=== PATIENT | male | born 1970 | race African-American/Black ===

== ENCOUNTER 2022-12-23 12:30 | Observation (INO) | payer OTHER, SELFPAY ==
--- NOTE | ~2022-12-23 | CT_ITS ---
EXAMINATION: CT ABDOMEN AND PELVIS WITHOUT CONTRAST CLINICAL INFORMATION: Urinary retention COMPARISON: None available. TECHNIQUE: Multidetector volumetric imaging was performed from the superior aspect of the liver through the pubic symphysis. Sagittal and coronal reformatted images were obtained on the technologist's workstation. This CT examination was performed using dose optimization techniques as appropriate, variously including the following: *Automated exposure control *Adjustment of mA and/or kV according to patient size (this includes techniques or standardized protocols for targeted exams where dose is matched to indication/reason for exam; i.e. extremities or head) *Use of iterative reconstruction technique DLP: 456 mGy-cm FINDINGS: LUNG BASES: Unremarkable. ABDOMINAL AND PELVIC WALL: Unremarkable. LIVER AND BILIARY TREE: Unremarkable. GALLBLADDER: Unremarkable. PANCREAS: Unremarkable. SPLEEN: Unremarkable. ADRENAL GLANDS: Unremarkable. KIDNEYS AND URETERS: No hydronephrosis or nephrolithiasis. GASTROINTESTINAL TRACT: Small hiatal hernia. Colonic diverticulosis without evidence of diverticulitis. Normal appendix. VASCULAR: Unremarkable. LYMPH NODES/PERITONEUM: No lymphadenopathy. FREE FLUID: None. BLADDER: Guzman catheter decompresses the urinary bladder. PELVIC VISCERA: Prostate is mildly enlarged measuring 5.2 cm in transverse diameter. OSSEOUS STRUCTURES: Unremarkable. CT/CT abdomen pelvis wo IV con IMPRESSION: 1. Guzman catheter decompresses the urinary bladder, limiting evaluation. No hydronephrosis or nephrolithiasis. 2. Prostate is mildly enlarged.
[2022-12-23 13:38] VITALS: BP 205/131; PULSE 75; RESP 16; TEMP 36.6; O2SAT 98; BMI 28.5
--- NOTE | 2022-12-23 14:15 | ED_ITS ---
HPI - Male Genitourinary General Chief complaint: Urogenital-Male Stated complaint: Abd pain/Urinary retention Time Seen by Provider: 12/23/22 14:02 Source: patient Mode of arrival: ambulatory Limitations: no limitations History of Present Illness HPI Narrative: 52-year-old male with no medical history presents to the ER for evaluation difficulty urinating and urinary retention that started 2 days ago. Patient states that since night he has had difficulty emptying his bladder. He states he has a sensation to urinate but is only urinating small amounts. He reports dribbling. He reports increased lower abdominal pressure and pain. He denies any blood in his urine. He denies any abnormal smell or color of the urine. He denies any back pain. He denies any history of urinary issues. No fever or chills. He went to an urgent care today for these complaints. He was found to be hypertensive to 180 systolic and was sent to the ER for further evaluation. He denies any history of high blood pressure in the past. He does not have a PCP at this time. He is not on any prescription medications. No new supplements or meds. He denies any chest pain, headaches, vision changes. MD Complaint: other (Urinary retention and difficulty urinating) Onset (ago): day(s) (2) Duration: progressively worsening Location: abdomen Radiation: abdomen Severity: severe Quality: aching Relieving factors: none Exacerbating factors: none Associated symptoms: Reports urinary retention Related Data Previous Rx's Medication Instructions Recorded tamsulosin 0.4 mg capsule (Flomax) 0.4 mg PO BEDTIME #30 caps 12/23/22 Allergies Allergy/AdvReac Type Severity Reaction Status Date / Time No Known Allergies Allergy Verified 12/23/22 13:37 Review of Systems 2 Review of Systems: Yes all other systems are reviewed and are negative [facility] Social History Social History Alcohol intake: never Smoked in Last 30 Days: No Use of substances other than those prescribed or required for medical reasons: No Advance Directives: No Physical Exam 2 Vital Signs: Vital Signs: Last Vital Signs Temp 99.2 F 12/23/22 21:02 Pulse 75 12/23/22 21:02 Resp 17 12/23/22 21:02 BP 152/96 H 12/23/22 21:02 Pulse Ox 98 12/23/22 21:02 O2 Del Method Room Air 12/23/22 21:02 BMI result Body Mass Index 28.5 Appearance: Alert. Oriented X3. anxious Head: normocephalic, atraumatic. Eyes: Pupils equal, round and reactive to light. ENT: Pharynx normal. No tonsillar swelling or exudate. Neck: Normal inspection. Neck supple. CVS: Normal heart rate and rhythm. Pulses normal. Respiratory: No respiratory distress. Breath sounds normal. Abdomen: distended with palpable distended and full bladder up to the level of the umbilicus. normal active +BS x4 : normal inspection of genitalia, circumsized penis, no testicular tenderness or swelling. no urethral discharge Skin: Skin warm and dry. Normal skin color. Normal skin turgor. No rashes. Extremities: No lower extremity edema. No joint swelling. Neuro/psych: Oriented X 3. No motor deficit. No sensory deficit. CN II-XII intact. Normal speech and cognition. Course Reevaluation(s) Reevaluation #1: Patient was given sign-out to me from colleague Korina pending repeat metabolic panel. Creatinine worsened to 2.2. Given patient has no comorbidities and is not fluid overloaded, will medicate with 2 L of IV fluids and recheck chemistries after. Time: 17:16 Reevaluation #2: Repeat creatinine after receiving 2 L of IV fluids now 1.86. It is unclear whether not this is a post renal ALTAGRACIA due to stricture versus possible enlarged prostate, or if this is secondary to hypertension. I discussed his case with my attending physician Dr. Ray, who agrees that patient needs to be observed with hospital admission. I will consult with the hospitalist for further management of care. Time: 20:40 Reevaluation #3: I spoke to hospitalist, Dr. Amador recommends consult Neurology to see if urology admission were appropriate. I spoke to Dr. Luo, who recommends hospital admission with urology consult. Dr. Gallo recommends Flomax 0.4 mg daily. Transfer of care initiated. Time: 21:15 Medications Administered Discontinued Medications Generic Name Dose Route Start Last Admin Trade Name Freq PRN Reason Stop Dose Admin Sodium Chloride 1,000 mls @ 2,000 mls/hr 12/23/22 17:15 12/23/22 18:35 Ns IV 12/23/22 17:44 Infused .Q30M ONE Infusion Lidocaine HCl 10 ml 12/23/22 14:02 12/23/22 14:18 Lidocaine Hcl 2 % Urojet 10 Ml Jel.Pf.Jean Paul TOPICAL 12/23/22 14:03 10 ml ONCE ONE Administration Medical Decision Making Medical Decision Making [facility] Narrative: 52-year-old male with no significant medical history presents to the ER for evaluation of acute urinary retention and significant hypertension. His hypertension is most likely related to his acute pain and retention. No history of hypertension in the past. His bladder is palpable up to the level of the umbilicus. Urine jet was given and when catheter was attempted to be placed, there was resistance met about 1.5 cm in to the urethra. Several attempts made by nursing with eventual ability to pass the urinary catheter past the blockage to the level of the bladder with drainage of clear, milton colored urine. Approximately 1200 cc of urine were ventrally drained from the bladder and patient felt much improved. Urethral stricture most likely the cause of his acute urinary retention. Lab workup showing likely active uropathy with a creatinine of 1.96. No baseline. Patient given oral fluids with plan to repeat his renal function and ensure improvement. CT scan of the abdomen was performed which showed mild BPH. will start flomax and have him f/u with urology BP improved after saeed. will hold off on starting anti-hypertensives today and have him f/u with PCP Differential Diagnosis Differential Diagnoses: The differential diagnosis associated with the presentation includes Acute urinary retention due to urethral stricture, UTI, adverse medication reaction, obstructing kidney stone, BPH, constipation, bladder outlet obstruction Admission/Observation Consideration of admission/observation: Escalation of care including admission/observation considered Escalation of care including admission observation was considered given worsening creatinine function. Consult Healthcare Provider Management of the patient was discussed with: Hospitalist and Y[employer] Text[employer] Operator Dr. Luo, urology Dr. Amador, hospitalist Lab Data [facility] Lab Attestation statement: I reviewed the patient's lab results. presumed ALTAGRACIA with creatinine of 1.96 12/23/22 14:48 12/23/22 19:53 Labs: Lab Results 12/23/22 12/23/22 12/23/22 Range/Units 14:48 15:06 16:26 WBC 8.3 (4.8-10.8) X10*3/uL RBC 4.63 (4.60-5.80) X10*6/uL Hgb 13.8 L (14.0-18.0) g/dl Hct 41.5 L (42.0-52.0) % MCV 89.6 (80.0-98.0) fL MCH 29.8 (27.0-33.0) pg MCHC 33.3 (31.0-36.0) g/dl RDW 12.7 (11.0-16.0) % Plt Count 333 (160-400) X10*3/uL MPV 8.8 L (9.4-12.4) fL Immature Gran % (Auto) 0.2 (0.0-0.4) % Neut % (Auto) 76.9 H (45-73) % Lymph % (Auto) 16.1 L (20-40) % [place] % (Auto) 5.6 (2-11) % Eos % (Auto) 0.7 (0-4) % Baso % (Auto) 0.5 (0-2) % Lymph # (Auto) 1.3 (1.2-4.9) X10*3/uL [place] # (Auto) 0.5 (0.1-1.2) X10*3/uL Eos # (Auto) 0.1 (0.0-0.4) X10*3/uL Baso # (Auto) 0.0 (0.0-0.2) X10*3/uL Abs Immat Gran (auto) 0.02 (0.00-0.03) X10*3/uL Absolute Neuts (auto) 6.4 (2.0-8.3) x10*3/uL Absolute Nucleated RBC 0.000 (0.0-0.012) X10*3/uL Nucleated RBC % (auto) 0.0 (0.0-0.2) /100WBC Sodium 140 140 (135-145) mmol/L Potassium 4.3 3.7 (3.3-5.1) mmol/L Chloride 107 105 (96-108) mmol/L Carbon Dioxide 24 25 (22-29) mmol/L Anion Gap 13 14 (12-20) BUN 23 H 22 H (9-16) mg/dL Creatinine 1.96 H 2.02 H (0.5-1.4) mg/dL Estim Creat Clear Calc 44.8 43.4 Estimated GFR 36 35 Random Glucose 129 H 138 H (60-115) mg/dL Calcium 10.1 10.3 H (8.4-10.2) mg/dL Magnesium 2.1 (1.6-2.6) mg/dL Total Bilirubin 0.8 (0.0-1.0) mg/dL Direct Bilirubin 0.4 (0.0-0.5) mg/dL AST 18 (5-37) U/L ALT 17 (0-40) U/L Alkaline Phosphatase 61 (39-117) U/L Total Protein 8.8 H (6.5-8.0) g/dL Albumin 4.2 (3.5-5.0) g/dL Urine Color Yellow Urine Appearance Clear Urine pH 5.5 (5.0-9.0) Ur Specific [place] 1.020 (1.005-1.025) Urine Protein 300 (3+) H (Neg-Trace) mg/dL Urine Glucose (UA) Negative (Negative) mg/dL Urine Ketones Negative (Negative) mg/dL Urine Blood Trace H (Negative) Urine Nitrite Negative (Negative) Ur Leukocyte Esterase Negative (Negative) Urine RBC 0-2 (0-2) /HPF Urine WBC 0-5 (0-5) /HPF Ur Squamous Epith Cells 0-2 (0-2) /HPF Urine Bacteria None Seen (None Seen) Hyaline Casts 0-2 (0-2) /LPF 12/23/22 Range/Units 19:53 WBC (4.8-10.8) X10*3/uL RBC (4.60-5.80) X10*6/uL Hgb (14.0-18.0) g/dl Hct (42.0-52.0) % MCV (80.0-98.0) fL MCH (27.0-33.0) pg MCHC (31.0-36.0) g/dl RDW (11.0-16.0) % Plt Count (160-400) X10*3/uL MPV (9.4-12.4) fL Immature Gran % (Auto) (0.0-0.4) % Neut % (Auto) (45-73) % Lymph % (Auto) (20-40) % [place] % (Auto) (2-11) % Eos % (Auto) (0-4) % Baso % (Auto) (0-2) % Lymph # (Auto) (1.2-4.9) X10*3/uL [place] # (Auto) (0.1-1.2) X10*3/uL Eos # (Auto) (0.0-0.4) X10*3/uL Baso # (Auto) (0.0-0.2) X10*3/uL Abs Immat Gran (auto) (0.00-0.03) X10*3/uL Absolute Neuts (auto) (2.0-8.3) x10*3/uL Absolute Nucleated RBC (0.0-0.012) X10*3/uL Nucleated RBC % (auto) (0.0-0.2) /100WBC Sodium 142 (135-145) mmol/L Potassium 3.9 (3.3-5.1) mmol/L Chloride 111 H (96-108) mmol/L Carbon Dioxide 25 (22-29) mmol/L Anion Gap 10 L (12-20) BUN 20 H (9-16) mg/dL Creatinine 1.86 H (0.5-1.4) mg/dL Estim Creat Clear Calc 47.2 Estimated GFR 38 Random Glucose 111 (60-115) mg/dL Calcium 9.3 D (8.4-10.2) mg/dL Magnesium (1.6-2.6) mg/dL Total Bilirubin 0.8 (0.0-1.0) mg/dL Direct Bilirubin (0.0-0.5) mg/dL AST 18 (5-37) U/L ALT 15 (0-40) U/L Alkaline Phosphatase 56 (39-117) U/L Total Protein 8.0 (6.5-8.0) g/dL Albumin 3.8 (3.5-5.0) g/dL Urine Color Urine Appearance Urine pH (5.0-9.0) Ur Specific [place] (1.005-1.025) Urine Protein (Neg-Trace) mg/dL Urine Glucose (UA) (Negative) mg/dL Urine Ketones (Negative) mg/dL Urine Blood (Negative) Urine Nitrite (Negative) Ur Leukocyte Esterase (Negative) Urine RBC (0-2) /HPF Urine WBC (0-5) /HPF Ur Squamous Epith Cells (0-2) /HPF Urine Bacteria (None Seen) Hyaline Casts (0-2) /LPF Independent Interpretation I performed an independent interpretation of an: CT Scan Radiology Impression Discussion of test interpretation with radiology: I have reviewed the radiologist's reading. Independent Historian Clinical information obtained from an independent historian. History obtained from or confirmed by: Spouse Prescription Management I considered prescription management with: Pain Medication and Antibiotic Critical Care Time Critical Care Time Critical Care Time: No Discharge Plan Discharge Clinical Impression: Acute urinary retention, ALTAGRACIA (acute kidney injury) Urethral stricture Qualifiers: Urethral stricture type: unspecified stricture type Patient Disposition: Admitted As Inpatient Instructions: Urinary Retention in Men (ED), Saeed Catheter Placement and Care (ED) Prescriptions: New tamsulosin [Flomax] 0.4 mg capsule 0.4 mg PO BEDTIME Qty: 30 0RF Referrals: [facility] [place] [facility] [Provider Group] [facility] [place] [facility] [Provider Group] [facility] [place]] [facility] [place] [facility] [Provider Group] (acute urinary retention) Stand Alone Forms: Work/School Release
[2022-12-23 14:17] VITALS: BP 210/123; PULSE 83; RESP 18; O2SAT 98
[2022-12-23] MEDS: Lidocaine HCl 2 % Urojet 10 ML JEL.PF.APP TOPICAL (14:18)
--- NOTE | 2022-12-23 14:20 | PC.NURSE ---
pt a&ox3. respirations even and unlabored. pt reports having urinary retention since with the ability to only dribble urine. pt reporting bloading and pain in the lower abdomen. violeta Ambriz and ken VYAS at bedside placing saeed. pt tolerated procedure well.
[2022-12-23 14:52] LABS: MANUAL DIFF FLAG NO
[2022-12-23 14:57] LABS: Basophils Percent Auto 0.5 % (0-2); Eosinophils Absolute Auto 0.1 X10*3/uL (0.0-0.4); Eosinophils Percent Auto 0.7 % (0-4); Hematocrit 41.5 % (42.0-52.0); Hemoglobin 13.8 g/dl (14.0-18.0); Imm Gran Abs Auto 0.02 X10*3/uL (0.00-0.03); Imm Gran Pct Auto 0.2 % (0.0-0.4); Lymphocytes Absolute Auto 1.3 X10*3/uL (1.2-4.9); Lymphocytes Percent Auto 16.1 % (20-40); Mean Corpuscular HGB Conc 33.3 g/dl (31.0-36.0); Mean Corpuscular Hemoglobin 29.8 pg (27.0-33.0); Mean Corpuscular Volume 89.6 fL (80.0-98.0); Mean Platelet Volume 8.8 fL (9.4-12.4); Monocytes Absolute Auto 0.5 X10*3/uL (0.1-1.2); Monocytes Percent Auto 5.6 % (2-11); Neutrophils Absolute Auto 6.4 x10*3/uL (2.0-8.3); Neutrophils Percent Auto 76.9 % (45-73); Platelet Count 333 X10*3/uL (160-400); Red Blood Count 4.63 X10*6/uL (4.60-5.80); Red Cell Distribution Width 12.7 % (11.0-16.0); White Blood Count 8.3 X10*3/uL (4.8-10.8)
[2022-12-23 15:08] LABS: Alanine Aminotransferase 17 U/L (0-40); Albumin Level 4.2 g/dL (3.5-5.0); Alkaline Phosphatase 61 U/L (39-117); Anion Gap 13 (12-20); Aspartate Amino Transferase 18 U/L (5-37); Bilirubin Direct 0.4 mg/dL (0.0-0.5); Bilirubin Total 0.8 mg/dL (0.0-1.0); Blood Urea Nitrogen 23 mg/dL (9-16); Calcium 10.1 mg/dL (8.4-10.2); Carbon Dioxide 24 mmol/L (22-29); Chloride 107 mmol/L (96-108); Creatinine Clr Calc Pharmacy 44.8; Estimated Glomerular Filt Rate 36; Glucose Random 129 mg/dL (60-115); Magnesium 2.1 mg/dL (1.6-2.6); Potassium 4.3 mmol/L (3.3-5.1); Sodium 140 mmol/L (135-145); Total Protein 8.8 g/dL (6.5-8.0)
[2022-12-23 15:13] LABS: Appearance Urine Clear; Color Urine Yellow; Glucose Urine UA Negative (Negative); Leukocyte Esterase Urine Negative (Negative); Nitrite Urine Negative (Negative); PH 5.5 (5.0-9.0); UMIC TRIGGER UACC YES; Urine Blood Trace (Negative); Urine Ketones Negative (Negative); Urine Protein 300 (3+) mg/dL (Neg-Trace)
[2022-12-23 15:15] LABS: Bacteria Urine None Seen (None Seen); Hyaline Casts Urine 0-2 /LPF (0-2); RBC Urine 0-2 /HPF (0-2); Squamous Epithelial Cell Urine 0-2 /HPF (0-2); WBC Urine 0-5 /HPF (0-5)
--- NOTE | 2022-12-23 15:16 | PC.NURSE ---
saeed drained 1200ml of milton colored urine.
[2022-12-23 15:35] VITALS: BP 169/116
[2022-12-23 16:47] LABS: Anion Gap 14 (12-20); Blood Urea Nitrogen 22 mg/dL (9-16); Calcium 10.3 mg/dL (8.4-10.2); Carbon Dioxide 25 mmol/L (22-29); Chloride 105 mmol/L (96-108); Creatinine Clr Calc Pharmacy 43.4; Estimated Glomerular Filt Rate 35; Glucose Random 138 mg/dL (60-115); Potassium 3.7 mmol/L (3.3-5.1); Sodium 140 mmol/L (135-145)
[2022-12-23] MEDS: 0.9 % Sodium Chloride 1,000 ML 2000 ML IV (17:31)
--- NOTE | 2022-12-23 17:35 | PC.NURSE ---
pt voided 1400ml of yellow urine into saeed bag. 20 placed in pt left ac, one of two liters is currently hanging and running.
--- NOTE | 2022-12-23 18:17 | PC.NURSE ---
second liter running at this time.
[2022-12-23 19:30] VITALS: BP 155/105; PULSE 73; RESP 17; TEMP 37.6; O2SAT 96
--- NOTE | 2022-12-23 20:04 | MHC.EDTECH ---
Plan of care ongoing No further concerns as of present Pt expresses no other needs at this time Call light within reach
[2022-12-23 20:23] LABS: Alanine Aminotransferase 15 U/L (0-40); Albumin Level 3.8 g/dL (3.5-5.0); Alkaline Phosphatase 56 U/L (39-117); Anion Gap 10 (12-20); Aspartate Amino Transferase 18 U/L (5-37); Bilirubin Total 0.8 mg/dL (0.0-1.0); Blood Urea Nitrogen 20 mg/dL (9-16); Calcium 9.3 mg/dL (8.4-10.2); Carbon Dioxide 25 mmol/L (22-29); Chloride 111 mmol/L (96-108); Creatinine Clr Calc Pharmacy 47.2; Estimated Glomerular Filt Rate 38; Glucose Random 111 mg/dL (60-115); Potassium 3.9 mmol/L (3.3-5.1); Sodium 142 mmol/L (135-145)
[2022-12-23 21:02] VITALS: BP 152/96; PULSE 75; RESP 17; TEMP 37.3; O2SAT 98
[2022-12-23] MEDS: Tamsulosin HCL 0.4 MG CAPSULE PO (21:32)
[2022-12-23] MEDS: Lactated Ringers 1,000 ML 100 ML IVCONT (22:48)
[2022-12-23] MEDS: Acetaminophen 325 MG TABLET 650 MG PO (22:53)
--- NOTE | 2022-12-23 23:05 | P.HPHOSP_ITS ---
History of Present Illness Date of Service: 12/23/22 Chief Complaint: urinary retention 52-year-old male with no significant past medical history presents the hospital with inability to pee. Patient reports that he has not been able to pee since . He was having pressure, and pain in the suprapubic region. Denies any fever, no chills, denies any chest pain no shortness of breath. No previous similar episode. Denies any urinary symptoms other than the fact that he was unable to pee. No abdominal pain no lower extremity edema. On arrival to the ED patient hemodynamically stable has elevated blood pressure. Reports that he was told in the past that he was hypertensive but he has not had a primary care physician and is not on any antihypertensives. Labs reviewed, showed a creatinine of 1.96 with no baseline for comparison UA negative for acute infection abdomen pelvic CT shows Guzman catheter in place, no hydronephrosis and no nephrolithiasis, has a mildly enlarged prostate Patient admitted for further management Review of Systems 2 Review of Systems: Yes all other systems are reviewed and are negative [facility] Medical History No pertinent past medical history Surgical History No pertinent past surgical history Social History Alcohol intake: never Smoked in Last 30 Days: No Use of substances other than those prescribed or required for medical reasons: No Advance Directives: No Meds Allergies Allergy/AdvReac Type Severity Reaction Status Date / Time No Known Allergies Allergy Verified 12/23/22 13:37 Active Medications: Current Medications Acetaminophen (Acetaminophen 325 Mg Tablet) 650 mg PO Q6H PRN PRN Reason: Pain, Mild (Pain Scale 1-3) Last Admin: 12/23/22 22:53 Dose: 650 mg Docusate Sodium (Docusate Sodium 100 Mg Capsule) 100 mg PO DAILY PRN PRN Reason: Constipation Lactated Ringer's (Lr) 1,000 mls @ 100 mls/hr IVCONT .Q10H ORESTES Last Admin: 12/23/22 22:48 Dose: 100 mls/hr Ondansetron HCl (Ondansetron Hcl 4 Mg/2 Ml Vial) 4 mg IVPUSH Q8H PRN PRN Reason: Nausea and Vomiting Sodium Chloride (0.9 % Sodium Chloride Flush 3 Ml Syringe) 3 ml IVFLUSH QSHIFT ORESTES Last Admin: 12/23/22 22:49 Dose: Not Given Physical Exam 2 Vital Signs and Narrative: Vital Signs: Last Vital Signs Temp 99.2 F 12/23/22 21:02 Pulse 75 12/23/22 21:02 Resp 17 12/23/22 21:02 BP 152/96 H 12/23/22 21:02 Pulse Ox 98 12/23/22 21:02 O2 Del Method Room Air 12/23/22 21:02 BMI result Body Mass Index 28.5 Const: General: cooperative and no acute distress O rientation/consciousness: patient oriented x3 Eyes: General: appearance normal, both eyes and all related structures Resp: Effort & Inspection: normal respiratory effort Auscultation: clear to auscultation bilaterally Cardio: Rate: regular rate Rhythm: regular rhythm GI: Other: Abdomen is soft, nontender, no rebound or guarding Palpation (GI): Soft to palpation Auscultation: normal bowel sounds : Other: Guzman catheter in place Skin: General skin exam: no rashes or lesions noted Neuro: General: patient oriented x3 Cognition (Neuro): normal cognition Extrem: General: Yes normal to inspection and Yes no pedal edema Results Labs 12/23/22 14:48 12/23/22 19:53 Labs: Laboratory Results - last 24 hr 12/23/22 12/23/22 12/23/22 14:48 15:06 16:26 MCV 89.6 MCH 29.8 MCHC 33.3 RDW 12.7 Plt Count 333 MPV 8.8 L Immature Gran % (Auto) 0.2 Neut % (Auto) 76.9 H Lymph % (Auto) 16.1 L [place] % (Auto) 5.6 Eos % (Auto) 0.7 Baso % (Auto) 0.5 Lymph # (Auto) 1.3 [place] # (Auto) 0.5 Eos # (Auto) 0.1 Baso # (Auto) 0.0 Abs Immat Gran (auto) 0.02 Absolute Neuts (auto) 6.4 Absolute Nucleated RBC 0.000 Nucleated RBC % (auto) 0.0 Anion Gap 13 14 Estim Creat Clear Calc 44.8 43.4 Estimated GFR 36 35 Random Glucose 129 H 138 H Calcium 10.1 10.3 H Magnesium 2.1 Total Bilirubin 0.8 Direct Bilirubin 0.4 AST 18 ALT 17 Alkaline Phosphatase 61 Total Protein 8.8 H Albumin 4.2 Urine Color Yellow Urine Appearance Clear Urine pH 5.5 Ur Specific [place] 1.020 Urine Protein 300 (3+) H Urine Glucose (UA) Negative Urine Ketones Negative Urine Blood Trace H Urine Nitrite Negative Ur Leukocyte Esterase Negative Urine RBC 0-2 Urine WBC 0-5 Ur Squamous Epith Cells 0-2 Urine Bacteria None Seen Hyaline Casts 0-2 12/23/22 19:53 MCV MCH MCHC RDW Plt Count MPV Immature Gran % (Auto) Neut % (Auto) Lymph % (Auto) [place] % (Auto) Eos % (Auto) Baso % (Auto) Lymph # (Auto) [place] # (Auto) Eos # (Auto) Baso # (Auto) Abs Immat Gran (auto) Absolute Neuts (auto) Absolute Nucleated RBC Nucleated RBC % (auto) Anion Gap 10 L Estim Creat Clear Calc 47.2 Estimated GFR 38 Random Glucose 111 Calcium 9.3 D Magnesium Total Bilirubin 0.8 Direct Bilirubin AST 18 ALT 15 Alkaline Phosphatase 56 Total Protein 8.0 Albumin 3.8 Urine Color Urine Appearance Urine pH Ur Specific [place] Urine Protein Urine Glucose (UA) Urine Ketones Urine Blood Urine Nitrite Ur Leukocyte Esterase Urine RBC Urine WBC Ur Squamous Epith Cells Urine Bacteria Hyaline Casts Imaging Radiologist's Impressions: Impressions Abdomen/Pelvis CT 12/23/22 15:20 IMPRESSION: 1. Guzman catheter decompresses the urinary bladder, limiting evaluation. No hydronephrosis or nephrolithiasis. 2. Prostate is mildly enlarged. Assessment and Plan (1) ALTAGRACIA (acute kidney injury): Status: Acute (2) Acute urinary retention: Status: Acute Plan 52-year-old male with no significant past medical history comes into the hospital with complaints of urinary retention # urinary retention - possibly secondary to BPH, no evidence of obstruction on CT abdomen - Guzman catheter in place - urology consulted # acute kidney injury - secondary to urinary retention - IVF - follow BMP # hypertensive crisis - reports no history of hypertension - will monitor BP, if states elevated consider starting antihypertensive DVT prophylaxis: Early ambulation Time Spent With Patient Time: Total time managing care of this patient today ____ minutes. Quality Stroke Does the patient have a stroke diagnosis?: No VTE Prior VTE?: No VTE Risk Level:: Medical - low VTE Device Contraindication: Treatment Not Indicated VTE Drug Contraindication: Treatment Not Indicated
[2022-12-24 01:50] VITALS: BP 146/98; PULSE 69; RESP 17; TEMP 36.8; O2SAT 98
[2022-12-24 05:33] VITALS: BP 149/100; PULSE 74; RESP 17; TEMP 37; O2SAT 97
[2022-12-24 05:41] LABS: MANUAL DIFF FLAG NO
[2022-12-24 05:44] LABS: Basophils Percent Auto 0.6 % (0-2); Eosinophils Absolute Auto 0.2 X10*3/uL (0.0-0.4); Eosinophils Percent Auto 2.6 % (0-4); Hematocrit 38.4 % (42.0-52.0); Hemoglobin 12.8 g/dl (14.0-18.0); Imm Gran Abs Auto 0.01 X10*3/uL (0.00-0.03); Imm Gran Pct Auto 0.1 % (0.0-0.4); Lymphocytes Absolute Auto 2.3 X10*3/uL (1.2-4.9); Lymphocytes Percent Auto 32.6 % (20-40); Mean Corpuscular HGB Conc 33.3 g/dl (31.0-36.0); Mean Corpuscular Volume 89.9 fL (80.0-98.0); Mean Platelet Volume 9.3 fL (9.4-12.4); Monocytes Absolute Auto 0.5 X10*3/uL (0.1-1.2); Monocytes Percent Auto 6.6 % (2-11); Neutrophils Percent Auto 57.5 % (45-73); Platelet Count 326 X10*3/uL (160-400); Red Blood Count 4.27 X10*6/uL (4.60-5.80); Red Cell Distribution Width 12.5 % (11.0-16.0); White Blood Count 6.9 X10*3/uL (4.8-10.8)
[2022-12-24 05:59] LABS: Anion Gap 10 (12-20); Blood Urea Nitrogen 18 mg/dL (9-16); Calcium 9.4 mg/dL (8.4-10.2); Carbon Dioxide 25 mmol/L (22-29); Chloride 109 mmol/L (96-108); Creatinine Clr Calc Pharmacy 49.8; Estimated Glomerular Filt Rate 41; Glucose Random 121 mg/dL (60-115); Potassium 3.6 mmol/L (3.3-5.1); Sodium 140 mmol/L (135-145)
--- NOTE | 2022-12-24 06:19 | PC.NURSE ---
Report to floor RN
[2022-12-24 06:58] VITALS: BP 145/95; PULSE 73; RESP 16; TEMP 36.1; O2SAT 97
[2022-12-24 07:15] VITALS: BP 148/71; PULSE 74; RESP 16; TEMP 36.6; O2SAT 98
[2022-12-24 07:25] VITALS: BMI 26.8
--- NOTE | 2022-12-24 08:40 | PHA.MEDREC ---
Pharmacy Consult ? Medication Reconciliation Pharmacy has completed the medication reconciliation. Pt reports no meds.
[2022-12-24] MEDS: Lactated Ringers 1,000 ML 100 ML IVCONT ×2 (09:28→18:04)
[2022-12-24 10:49] LABS: Amphetamine Screen Urine Not Detected (Not Detect); Barbiturates, Urine Not Detected (Not Detect); Benzodiazepines Screen Urine Not Detected (Not Detect); Cannabinoid Screen Urine Not Detected (Not Detect); Cocaine Screen Urine Not Detected (Not Detect); Fentanyl, urine Not Detected (Not Detect); Opiate Screen Urine Not Detected (Not Detect); Phencyclidine Screen Urine Not Detected (Not Detect)
--- NOTE | 2022-12-24 11:38 | P.PNIM_ITS ---
Subjective Subjective Date of Service: 12/24/22 Interval History: seen and examined this morning follow up for urinary retention saeed in place, feeling much better no abdominal pain Review of Systems Review of Systems: Yes all other systems are reviewed and are negative Constitutional Constitutional: Denies chills and Denies fever(s) Cardiovascular Cardiovascular: Denies chest pain, Denies palpitations and Denies dyspnea Respiratory Respiratory: Denies cough and Denies dyspnea Gastrointestinal Gastrointestinal: Denies abdominal pain, Denies nausea and Denies vomiting Endocrine Endocrine: Denies palpitations Physical Exam 2 Vital Signs: Vital Signs: Last Vital Signs Temp 97.8 F 12/24/22 07:15 Pulse 74 12/24/22 07:15 Resp 16 12/24/22 07:15 BP 148/71 H 12/24/22 07:15 Pulse Ox 98 12/24/22 07:15 O2 Del Method Room Air 12/24/22 07:15 BMI result Body Mass Index 26.8 Const: General: cooperative, comfortable, no acute distress, alert and awake Nutritional Appearance: average body habitus Orientation/consciousness: p atient oriented x3 Resp: Effort & Inspection: normal respiratory effort, able to speak in complete sentences, no respiratory distress and no use of accessory muscles Cardio: Rate: regular rate GI: Inspection: No distended Palpation (GI): Soft to palpation : Other: saeed draining clear yellow urine Neuro: General: patient oriented x3 and CN's II-XI intact bilaterally Objective Data Active Medications Acetaminophen (Acetaminophen 325 Mg Tablet) 650 mg PO Q6H PRN PRN Reason: Pain, Mild (Pain Scale 1-3) Last Admin: 12/23/22 22:53 Dose: 650 mg Documented By: WILDER Docusate Sodium (Docusate Sodium 100 Mg Capsule) 100 mg PO DAILY PRN PRN Reason: Constipation Lactated Ringer's (Lr) 1,000 mls @ 100 mls/hr IVCONT .Q10H [facility] Last Admin: 12/24/22 09:28 Dose: 100 mls/hr Documented By: OLY Ondansetron HCl (Ondansetron Hcl 4 Mg/2 Ml Vial) 4 mg IVPUSH Q8H PRN PRN Reason: Nausea and Vomiting Sodium Chloride (0.9 % Sodium Chloride Flush 3 Ml Syringe) 3 ml IVFLUSH QSHIFT [facility] Last Admin: 12/24/22 07:58 Dose: Not Given Documented By: OLY Non-Admin Reason: IV Running Labs 12/24/22 05:07 12/24/22 05:07 Labs: Laboratory Results - last 24 hr 12/23/22 12/23/22 12/23/22 14:48 15:06 16:26 MCV 89.6 MCH 29.8 MCHC 33.3 RDW 12.7 Plt Count 333 MPV 8.8 L Immature Gran % (Auto) 0.2 Neut % (Auto) 76.9 H Lymph % (Auto) 16.1 L Divide % (Auto) 5.6 Eos % (Auto) 0.7 Baso % (Auto) 0.5 Lymph # (Auto) 1.3 [place]ide # (Auto) 0.5 Eos # (Auto) 0.1 Baso # (Auto) 0.0 Abs Immat Gran (auto) 0.02 Absolute Neuts (auto) 6.4 Absolute Nucleated RBC 0.000 Nucleated RBC % (auto) 0.0 Anion Gap 13 14 Estim Creat Clear Calc 44.8 43.4 Estimated GFR 36 35 Random Glucose 129 H 138 H Calcium 10.1 10.3 H Magnesium 2.1 Total Bilirubin 0.8 Direct Bilirubin 0.4 AST 18 ALT 17 Alkaline Phosphatase 61 Total Protein 8.8 H Albumin 4.2 Urine Color Yellow Urine Appearance Clear Urine pH 5.5 Ur Specific [place] 1.020 Urine Protein 300 (3+) H Urine Glucose (UA) Negative Urine Ketones Negative Urine Blood Trace H Urine Nitrite Negative Ur Leukocyte Esterase Negative Urine RBC 0-2 Urine WBC 0-5 Ur Squamous Epith Cells 0-2 Urine Bacteria None Seen Hyaline Casts 0-2 Urine Opiates Screen Not Detected Urine Fentanyl Screen Not Detected Ur Barbiturates Screen Not Detected Ur Phencyclidine Scrn Not Detected Ur Amphetamines Screen Not Detected U Benzodiazepines Scrn Not Detected Urine Cocaine Screen Not Detected U Marijuana (THC) Screen Not Detected 12/23/22 12/24/22 19:53 05:07 MCV 89.9 MCH 30.0 MCHC 33.3 RDW 12.5 Plt Count 326 MPV 9.3 L Immature Gran % (Auto) 0.1 Neut % (Auto) 57.5 Lymph % (Auto) 32.6 Divide % (Auto) 6.6 Eos % (Auto) 2.6 Baso % (Auto) 0.6 Lymph # (Auto) 2.3 Divide # (Auto) 0.5 Eos # (Auto) 0.2 Baso # (Auto) 0.0 Abs Immat Gran (auto) 0.01 Absolute Neuts (auto) 4.0 Absolute Nucleated RBC 0.000 Nucleated RBC % (auto) 0.0 Anion Gap 10 L 10 L Estim Creat Clear Calc 47.2 49.8 Estimated GFR 38 41 Random Glucose 111 121 H Calcium 9.3 D 9.4 Magnesium Total Bilirubin 0.8 Direct Bilirubin AST 18 ALT 15 Alkaline Phosphatase 56 Total Protein 8.0 Albumin 3.8 Urine Color Urine Appearance Urine pH Ur Specific [place] Urine Protein Urine Glucose (UA) Urine Ketones Urine Blood Urine Nitrite Ur Leukocyte Esterase Urine RBC Urine WBC Ur Squamous Epith Cells Urine Bacteria Hyaline Casts Urine Opiates Screen Urine Fentanyl Screen Ur Barbiturates Screen Ur Phencyclidine Scrn Ur Amphetamines Screen U Benzodiazepines Scrn Urine Cocaine Screen U Marijuana (THC) Screen Assessment and Plan (1) ALTAGRACIA (acute kidney injury): Status: Acute (2) Acute urinary retention: Status: Acute Plan This is a 52-year-old male with no significant past medical history comes into the hospital with complaints of urinary retention, had saeed placed in the ED with documented resistance met during saeed insertion thought to be related to urethral stricture also found to have elevated blood pressure and renal insufficiency acute urinary retention likely secondary to uretheral stricture no evidence of obstruction on CT abdomen, mild BPH s/p saeed placement with drainage of 1200 cc of urine startd on flomax - urology consulted acute kidney injury Unclear baseline creatinine secondary to urinary retention SCr down from 2.02 to 1.76 continue IVF follow BMP elevated blood pressure likely secondary to urinary retention and pain bp improved, follow closely DVT prophylaxis: Early ambulation attending - dr. sanchez Patient requires ongoing stay in the hospital for IV fluid, close monitoring of renal function blood pressure as well as specialist evaluation Time Spent With Patient Time: Total time managing care of this patient today ____ minutes. Quality Stroke Does the patient have a stroke diagnosis?: No VTE Prior VTE?: No VTE Risk Level:: Medical - low VTE Device Contraindication: Treatment Not Indicated VTE Drug Contraindication: Treatment Not Indicated
[2022-12-24] MEDS: Acetaminophen 325 MG TABLET 650 MG PO ×2 (11:55→22:34)
[2022-12-24 15:35] VITALS: BP 152/90; PULSE 67; RESP 16; TEMP 36.3; O2SAT 97
--- NOTE | 2022-12-24 16:14 | MHC.CM.PN ---
PT REPORTS HE LIVES ALONE AND IS INDEPENDENT WITH CARE HE DENIES USE OF DME OR HOME SERVICES PT COMPLETED A HCP TODAY NAMING HIS GIRLFRIEND, ENDY, HIS AGENT HE DOES NOT HAVE A PCP, HOWEVER REPORTS HE HAS A NEW PT APT SCHEDULED AT [facility] IN [place] IN [place] NOTICE DELIVERED DCP: HOME NO SERVICES VIA PRIVATE TRANSPORT
[2022-12-24 19:56] VITALS: BP 158/92; PULSE 72; RESP 16; TEMP 36.8; O2SAT 97
[2022-12-24] MEDS: Tamsulosin HCL 0.4 MG CAPSULE PO (20:03)
[2022-12-25] VITALS: BP 150/98; PULSE 65; RESP 16; TEMP 36.6; O2SAT 98
[2022-12-25] MEDS: Lactated Ringers 1,000 ML 100 ML IVCONT (02:58)
[2022-12-25 06:10] LABS: Anion Gap 11 (12-20); Blood Urea Nitrogen 19 mg/dL (9-16); Calcium 8.9 mg/dL (8.4-10.2); Carbon Dioxide 27 mmol/L (22-29); Chloride 107 mmol/L (96-108); Creatinine Clr Calc Pharmacy 47.2; Estimated Glomerular Filt Rate 43; Glucose Random 110 mg/dL (60-115); Potassium 3.5 mmol/L (3.3-5.1); Sodium 141 mmol/L (135-145)
[2022-12-25 06:56] VITALS: BP 143/92; PULSE 67; RESP 16; TEMP 36.6; O2SAT 97
--- NOTE | 2022-12-25 08:54 | PC.NURSE ---
Education given for medical problems, leg bag given and educated, pt and states understanding.
--- NOTE | 2022-12-25 11:09 | P.DS_ITS ---
DS: Providers Provider Date of Service: 12/25/22 Date of admission: 12/23/22 22:11 Primary care physician: None Physician Consults: 12/23/22 22:11 Consult to Urology Routine Consulting Provider: Dipika Dobbins Reason for consultation: urinry retention Has provider been notified: Yes DS: Diagnosis Discharge Diagnosis (1) ALTAGRACIA (acute kidney injury): Status: Acute (2) Acute urinary retention: Status: Acute DS: Summary Hospital Course Hospital Course: History and physical as per admitting provider. 52-year-old male with no significant past medical history presents the hospital with inability to pee. Patient reports that he has not been able to pee since . He was having pressure, and pain in the suprapubic region. Denies any fever, no chills, denies any chest pain no shortness of breath. No previous similar episode. Denies any urinary symptoms other than the fact that he was unable to pee. No abdominal pain no lower extremity edema. On arrival to the ED patient hemodynamically stable has elevated blood pressure. Reports that he was told in the past that he was hypertensive but he has not had a primary care physician and is not on any antihypertensives. Labs reviewed, showed a creatinine of 1.96 with no baseline for comparison UA negative for acute infection abdomen pelvic CT shows Guzman catheter in place, no hydronephrosis and no nephrolithiasis, has a mildly enlarged prostate patient admitted for further management 52-year-old man treated for urinary retention likely secondary to BPH without evidence of obstruction on CT abdomen. Guzman catheter was placed without difficulty. Seen evaluated by Urology. Plan is to follow-up in the office in 1 week for a voiding trial. Due to the urinary retention patient had acute kidney injury which was resolved after Guzman catheter placement and IV fluids. He also had an episode of hypertensive crisis with no history of hypertension in the past. Systolic blood pressure has been between 140-150. Started on Norvasc 2.5 mg daily, he needs to follow-up with primary care provider to monitor blood pressures. Time Spent with Patient Time attestation: Total time managing care of this patient today ____ minutes. Discharge coordination time: Greater than 30 minutes Quality: Safe Use of Opioids Does Pt have an Active Cancer Diagnosis on the Problem List?: No Quality: Stroke Does the patient have a stroke diagnosis?: No Physical Exam Vital Signs: Vital Signs: Last Vital Signs Temp 97.8 F 12/25/22 06:56 Pulse 67 12/25/22 06:56 Resp 16 12/25/22 06:56 BP 143/92 H 12/25/22 06:56 Pulse Ox 97 12/25/22 06:56 O2 Del Method Room Air 12/25/22 06:56 BMI result Body Mass Index 26.8 Appearing in no acute distress head is normocephalic atraumatic eyes pupils are PERRLA sclera is anicteric mouth throat mucous membranes are intact and moist neck is supple no lymphadenopathy, no JVD noted lung sounds are clear to auscultation heart regular rate rhythm, clear S1, S2 positive bowel sounds, abdomen is soft, nontender neuro patient is alert x3, no focal deficits . Guzman catheter in place DS: Data Data Completed and Pending Labs on day of discharge: Laboratory Results - last 24 hr 12/25/22 05:42 Sodium 141 Potassium 3.5 Chloride 107 Carbon Dioxide 27 Anion Gap 11 L BUN 19 H Creatinine 1.69 H Estim Creat Clear Calc 47.2 Estimated GFR 43 Random Glucose 110 Calcium 8.9 Discharge Plan Discharge Anticipated Discharge Date/Time: 12/25/22 11:04 Patient Disposition: Home, Self-Care Discharge Diagnosis: Acute urinary retention Acute kidney injury Elevated blood pressure reading Referrals: [facility] [place] Group] [facility] [Provider Group] [facility] [place]] [facility] [Provider Group] (acute urinary retention) Discharge Medications: New tamsulosin [Flomax] 0.4 mg capsule 0.4 mg PO BEDTIME Qty: 30 0RF Discharge Orders: Discharge Order (Routine); Ordered 12/25/22 Ordered By: Audrey Herring Diet: Advance to usual diet Activity on Discharge: As tolerated Stand Alone Forms: Patient Portal Discharge page, Work/School Release Care Plan Goals: Follow-up in urology office in 1 week for voiding trial Health Concerns: Acute urinary retention Acute kidney injury Elevated blood pressure reading Plan of Treatment: Follow-up with primary care provider for blood pressure monitoring No need to start new medication for blood pressure at this time Assessment: See discharge summary Patient Instructions: Urinary Retention in Men (ED), Guzmna Catheter Placement and Care (ED), Urinary Leg Bag (GEN)
--- NOTE | 2022-12-25 11:26 | MHC.CM.PN ---
pt dcd home no serveis
--- NOTE | 2022-12-25 11:26 | MHC.CM.PN ---
pcp list given to pt
--- NOTE | 2022-12-25 11:44 | P.CNUR_ITS ---
History of Present Illness Consult details Consult date: 12/25/22 Narrative: 52-year-old male with no significant past medical history presents the hospital with complaints he is unable to urinate. Admitted on 12/23/22. He was having pressure, and pain in the suprapubic region. Denies any fever, no chills, denies any chest pain no shortness of breath. No previous similar episode. Denies any urinary symptoms previously. UA negative for acute infection CTAP: Saeed catheter in place, no hydronephrosis and no nephrolithiasis, has a mildly enlarged prostate PMFSH Past Medical History Medical History No pertinent past medical history Surgical History Surgical History No pertinent past surgical history Social History Social History Household Members: Spouse Housing: House Do you presently have visiting nurse or other home services: No Alcohol intake: never Patient Tobacco Use Status: Never used Tobacco Second Hand Smoke Exposure: No service: No Meds Allergies Allergy/AdvReac Type Severity Reaction Status Date / Time No Known Allergies Allergy Verified 01/05/23 10:47 Active Medications: Current Medications Acetaminophen (Acetaminophen 325 Mg Tablet) 650 mg PO Q6H PRN PRN Reason: Pain, Mild (Pain Scale 1-3) Last Admin: 12/24/22 22:34 Dose: 650 mg Amlodipine Besylate (Amlodipine Besylate 2.5 Mg Tablet) 2.5 mg PO DAILY [facility]; Protocol Docusate Sodium (Docusate Sodium 100 Mg Capsule) 100 mg PO DAILY PRN PRN Reason: Constipation Ondansetron HCl (Ondansetron Hcl 4 Mg/2 Ml Vial) 4 mg IVPUSH Q8H PRN PRN Reason: Nausea and Vomiting Sodium Chloride (0.9 % Sodium Chloride Flush 3 Ml Syringe) 3 ml IVFLUSH QSHIFT [facility] Last Admin: 12/25/22 07:23 Dose: Not Given Tamsulosin HCl (Tamsulosin Hcl 0.4 Mg Capsule) 0.4 mg PO BEDTIME [facility] Last Admin: 12/24/22 20:03 Dose: 0.4 mg Physical Exam 2 Vital Signs: Vital Signs: Last Vital Signs Temp 97.8 F 12/25/22 06:56 Pulse 67 12/25/22 06:56 Resp 16 12/25/22 06:56 BP 143/92 H 12/25/22 06:56 Pulse Ox 97 12/25/22 06:56 O2 Del Method Room Air 12/25/22 06:56 BMI result Body Mass Index 26.8 Const: General: healthy appearing, no acute distress and well developed O rientation/consciousness: patient oriented x3 HEENT: Head: Yes normocephalic and Yes atraumatic Eyes: Conjunctivae: conjunctivae normal Neck: Neck: Yes normal visual inspection Chest: Chest palpation & inspection: normal inspection of the chest Resp: Effort & Inspection: normal respiratory effort Cardio: Rate: regular rate GI: Inspection: Yes normal to inspection Palpation (GI): Soft to palpation : Other: saeed in place Penis: normal penis Scrotum: scrotum normal Skin: General skin exam: no rashes or lesions noted Neuro: General: patient oriented x3 Extrem: General: No pedal edema Psych: Appearance: grossly normal Affect: normal affect Results Labs 12/24/22 05:07 12/25/22 05:42 Labs: Abnormal lab results 12/25/22 Range/Units 05:42 Anion Gap 11 L (12-20) BUN 19 H (9-16) mg/dL Creatinine 1.69 H (0.5-1.4) mg/dL BMP 12/25/22 05:42 Sodium 141 Potassium 3.5 Chloride 107 Carbon Dioxide 27 BUN 19 H Creatinine 1.69 H Calcium 8.9 Urine 12/23/22 Range/Units 15:06 Urine Color Yellow Urine Appearance Clear Urine pH 5.5 (5.0-9.0) Ur Specific [place] 1.020 (1.005-1.025) Urine Protein 300 (3+) H (Neg-Trace) mg/dL Urine Glucose (UA) Negative (Negative) mg/dL Imaging Abdomen CT scan report/results: report reviewed and image reviewed CT scan - pelvis: report reviewed and image reviewed Additional studies: Date of Service: 12/23/22 EXAMINATION: CT ABDOMEN AND PELVIS WITHOUT CONTRAST CLINICAL INFORMATION: Urinary retention COMPARISON: None available. TECHNIQUE: Multidetector volumetric imaging was performed from the superior aspect of the liver through the pubic symphysis. Sagittal and coronal reformatted images were obtained on the technologist's workstation. This CT examination was performed using dose optimization techniques as appropriate, variously including the following: *Automated exposure control *Adjustment of mA and/or kV according to patient size (this includes techniques or standardized protocols for targeted exams where dose is matched to indication/reason for exam; i.e. extremities or head) *Use of iterative reconstruction technique DLP: 456 mGy-cm FINDINGS: LUNG BASES: Unremarkable. ABDOMINAL AND PELVIC WALL: Unremarkable. LIVER AND BILIARY TREE: Unremarkable. GALLBLADDER: Unremarkable. PANCREAS: Unremarkable. SPLEEN: Unremarkable. ADRENAL GLANDS: Unremarkable. KIDNEYS AND URETERS: No hydronephrosis or nephrolithiasis. GASTROINTESTINAL TRACT: Small hiatal hernia. Colonic diverticulosis without evidence of diverticulitis. Normal appendix. VASCULAR: Unremarkable. LYMPH NODES/PERITONEUM: No lymphadenopathy. FREE FLUID: None. BLADDER: Saeed catheter decompresses the urinary bladder. PELVIC VISCERA: Prostate is mildly enlarged measuring 5.2 cm in transverse diameter. OSSEOUS STRUCTURES: Unremarkable. IMPRESSION: 1. Saeed catheter decompresses the urinary bladder, limiting evaluation. No hydronephrosis or nephrolithiasis. 2. Prostate is mildly enlarged. Assessment and Plan (1) ALTAGRACIA (acute kidney injury): Status: Resolved (2) Acute urinary retention: Status: Acute Plan d/c with saeed Cont flomax 0.4 mg I will arrange fu with nurse for outpatient voiding trial in 5-7 days and FU with me in 2-3 weeks Time Spent With Patient Time: Total time managing care of this patient today ____ minutes. Procedures Date of Service Date of Service: 01/05/23
[2022-12-25] MEDS: amLODIPine Besylate 2.5 MG TABLET PO (12:33)
--- NOTE | 2022-12-25 17:41 | PC.NURSE ---
Pt called the unit around 17:40, stating [facility] did not have patients scripts electronically. [employer] notified.
== END 2022-12-25 13:01 | disposition home or self-care (01) ==
LOC: HO.ED 21:18 → HO.EDOVER 22:33 → HO.S3 12-24 06:03
PROVIDERS: Physician Assistant; Physician Assistant Medical; Admitting Provider Internal Medicine; Emergency Provider Emergency Medicine; Visit Provider Nurse Practitioner Acute Care
DX: N17.9 Acute kidney failure, unspecified (principal); R33.8 Other retention of urine; R10.9 Unspecified abdominal pain; N40.0 Benign prostatic hyperplasia without lower urinary tract symptoms; I16.9 Hypertensive crisis, unspecified; Z79.899 Other long term (current) drug therapy
CPT/HCPCS: 36415; 51702; 74176; 80048; 80053; 80076; 80307; 81001; 83735; 85025; 96360; 96361; 99221; 99285; C1758

== ENCOUNTER → 2022-12-23 22:11 | Outpatient (BNV) | payer OTHER, SELFPAY | PROVIDERS: Admitting Provider Internal Medicine; Emergency Provider Emergency Medicine; Visit Provider Urology | DX: N17.9 Acute kidney failure, unspecified (principal); R33.8 Other retention of urine | CPT/HCPCS: 99222 ==

== ENCOUNTER → 2022-12-23 22:11 | Outpatient (BNV) | payer OTHER, SELFPAY | PROVIDERS: Admitting Provider Internal Medicine; Emergency Provider Emergency Medicine; Visit Provider Internal Medicine | DX: N17.9 Acute kidney failure, unspecified (principal); R33.8 Other retention of urine | CPT/HCPCS: 99223; 99232; 99239 ==

== ENCOUNTER 2023-01-05 10:25 | Outpatient (AMB) | payer OTHER, SELFPAY ==
--- NOTE | 2023-01-05 10:27 | MHC.OFFVIS ---
Intake Intake Visit Reasons: 1 week voiding trial Allergies No Known Allergies Allergy (Verified 01/05/23 10:47) Medication List - Last Reconciled 01/05/23 by Dipika Dobbins MD amlodipine 2.5 mg PO DAILY phenazopyridine (Pyridium) 200 mg PO Q8H PRN 3 days sulfamethoxazole-trimethoprim 800-160 mg (Bactrim DS) 1 tab PO BID tamsulosin (Flomax) 0.4 mg PO BEDTIME HPI HPI Comments History of Present Illness Details Jc is a 52-year-old male who presents today to the office to establish as a new patient for an evaluation of?voiding trial. 01/05/2023-- He presents today for an evaluation of?voiding trial. He was seen in ED on 12/23/2022 for abdominal pain and urinary retention. He was seen in ED on 12/25/2022 for urinary retention. The patient was referred to the urology office during that time.? I reviewed the CT of the abdomen/pelvis results from 12/23/2022 revealed no hydronephrosis or nephrolithiasis.? Prostate is mildly enlarged. He mentions having burning with urination. He states that this episode was the first time he had problems with urination. The patient voided after the catheter was removed. Plan: Prescribed Bactrim DS one tablet BID for 3 days. Ordered Pyridium for urinary burning. Continue Flomax 0.4 daily. Follow-up in office Cystoscopy in 6 weeks. [facility] Medical History No pertinent past medical history Surgical History No pertinent past surgical history Social History Household Members: Spouse Housing: House Do you presently have visiting nurse or other home services: No Alcohol intake: never Patient Tobacco Use Status: Never used Tobacco Second Hand Smoke Exposure: No service: No Review of Systems Const All systems reviewed & are unremarkable except as noted in HPI and below Reports no additional complaints Eyes Reports no additional complaints ENT Reports no additional complaints Card Denies dyspnea Resp Denies cough and Denies dyspnea GI Reports no additional complaints Musc Reports no additional complaints Skin/Breast Denies rash and Denies unusual bruising Neuro Reports no additional complaints Psych Reports no additional complaints Endo Reports no additional complaints Naif/Lymph Reports no additional complaints Aller/Immun Reports no additional complaints Physical Exam Const General: healthy appearing, no acute distress and well developed Orientation/consciousness: patient oriented x3 HEENT Head: Yes normocephalic and Yes atraumatic Eyes Conjunctivae: conjunctivae normal Neck Neck: Yes normal visual inspection Chest Chest palpation & inspection: normal inspection of the chest Resp Effort & Inspection: normal respiratory effort Cardio Rate: regular rate GI Inspection: Yes normal to inspection Palpation (GI): Soft to palpation Penis: normal penis Scrotum: scrotum normal Skin General skin exam: no rashes or lesions noted Neuro General: patient oriented x3 Extrem General: No pedal edema Psych Appearance: grossly normal Affect: normal affect Office Procedures Bladder/Catheter Procedure Details: 120 mls sterile water instilled into bladder, 18 fr cath with 10 ml balloon removed, pt tolerated removal well. MA to bladder scan. [id number] of Bladder Procedure code (CPT) selection complete Results AMB Urinalysis, Automated UA Leukoctes 125 Abdirashid/uL Last Edit by AYAZ Bernal on 01/05/23 11:18 2+ Gisela Rubi 01/05/23 11:18 UA Nitrite Negative Last Edit by AYAZ Bernal on 01/05/23 11:18 UA Urobilinogen 0.2 mg/dL Last Edit by AYAZ Bernal on 01/05/23 11:18 UA Protein 30 mg/dL Last Edit by Gisela Rubi [facility] on 01/05/23 11:18 1+ Gisela Rubi 01/05/23 11:18 UA pH 8.0 Last Edit by AYAZ Bernal on 01/05/23 11:18 UA Blood 200 Braden/uL Last Edit by AYAZ Bernal on 01/05/23 11:18 3+ Gisela Rubi 01/05/23 11:18 UA Specific [place] 1.010 Last Edit by AYAZ Bernal on 01/05/23 11:18 UA Ketone Negative Last Edit by Gisela Rubi Fátima on 01/05/23 11:18 UA Bilirubin 0 mg/dL Last Edit by AYAZ Bernal on 01/05/23 11:18 UA Glucose 0 mg/dL Last Edit by AYAZ Bernal on 01/05/23 11:18 Results Reviewed Results Reviewed: Laboratory Last Values Urine pH (Auto) 8.0 01/05/23 11:16 Specific [place] (Auto) 1.010 01/05/23 11:16 Urine Protein (Auto) 30 mg/dL 01/05/23 11:16 Glucose (UA)(Auto) 0 mg/dL 01/05/23 11:16 Urine Ketones (Auto) Negative 01/05/23 11:16 Urine Blood (Auto) 200 Braden/uL 01/05/23 11:16 Urine Nitrite (Auto) Negative 01/05/23 11:16 Urine Bilirubin (Auto) 0 mg/dL 01/05/23 11:16 Urine Urobilinogen (Auto) 0.2 mg/dL 01/05/23 11:16 Leukocyte Esterase (Auto) 125 Abdirashid/uL 01/05/23 11:16 Date of Service: 12/23/22 EXAMINATION: CT ABDOMEN AND PELVIS WITHOUT CONTRAST?? CLINICAL INFORMATION: Urinary retention?? COMPARISON: None available. FINDINGS: LUNG BASES: Unremarkable.?? ABDOMINAL AND PELVIC WALL:? Unremarkable.?? LIVER AND BILIARY TREE: Unremarkable.?? GALLBLADDER: Unremarkable.?? PANCREAS: Unremarkable.?? SPLEEN: Unremarkable.?? ADRENAL GLANDS: Unremarkable.?? KIDNEYS AND URETERS: No hydronephrosis or nephrolithiasis.?? GASTROINTESTINAL TRACT: Small hiatal hernia. Colonic diverticulosis without evidence of diverticulitis.? Normal appendix. VASCULAR: Unremarkable. LYMPH NODES/PERITONEUM: No lymphadenopathy. FREE FLUID: None. BLADDER: Guzman catheter decompresses the urinary bladder.?? PELVIC VISCERA: Prostate is mildly enlarged measuring 5.2 cm in transverse diameter. OSSEOUS STRUCTURES: Unremarkable.?? IMPRESSION:? 1.? Guzman catheter decompresses the urinary bladder, limiting evaluation. No hydronephrosis or nephrolithiasis. 2.? Prostate is mildly enlarged. Assessment & Plan Assessment & Plan (1) Acute urinary retention: Code(s): R33.8 - Other retention of urine (2) BPH (benign prostatic hyperplasia): Code(s): N40.0 - Benign prostatic hyperplasia without lower urinary tract symptoms Plan Prescribed Bactrim DS one tablet BID for 3 days. Ordered Pyridium for urinary burning. Continue Flomax 0.4 daily. Follow-up in office Cystoscopy in 6 weeks. Orders: Orders AMB Bladder/Catheter Procedure 01/05/23 R33.8 - Other retention of urine AMB Urinalysis Automated 01/05/23 N39.0 - Urinary tract infection, site not specified Medications: New phenazopyridine (Pyridium) take with food as may cause some GI upset 200 mg PO Q8H PRN 9 tabs 0RF pain with urination 3 days sulfamethoxazole-trimethoprim 800-160 mg (Bactrim DS) 1 tab PO BID 6 tabs 0RF Refilled tamsulosin (Flomax) 0.4 mg PO BEDTIME 90 caps 1RF Patient Instructions: The patient had an opportunity to ask questions regarding treatment plan. All questions were answered. Imaging, Laboratory studies and physical exam results were discussed and reviewed in detail. No major barriers to understanding were identified. The patient expressed understanding and agreement with the above treatment plan.? ? ? The patient is aware they should contact our office by phone for worsening of their current condition or the appearance of new symptoms. Compliance is encouraged with any medications and followup testing that is ordered.? ? ? It is a privilege to be allowed the opportunity to participate in the urologic care of your patient. If you have any questions or concerns regarding treatment for the above conditions please do not hesitate to contact me. The office telephone contact is [phone].? ? ? This note is constructed in part using voice recognition software. While every effort has been made to ensure accuracy handkerchief maker errors may have been included.? ? ? Yours sincerely,? ? ? Dipika Dobbins MD? Coding Level of Care Code Est Pt Level 4 (02384) Diagnoses Acute urinary retention R33.8 BPH (benign prostatic hyperplasia) N40.0 CPT Codes Bladder/Catheter Procedure - CPT: 20124-Ftjwbosggl of Bladder ([id number])
== END 2023-01-05 12:02 | disposition home or self-care (01) ==
PROVIDERS: Visit Provider Urology
DX: R33.8 Other retention of urine (principal); N40.0 Benign prostatic hyperplasia without lower urinary tract symptoms
CPT/HCPCS: 51700; 99214

== ENCOUNTER → 2023-01-05 10:25 | Outpatient (BNVA) | payer OTHER, SELFPAY | PROVIDERS: Visit Provider Urology | DX: N40.1 Benign prostatic hyperplasia with lower urinary tract symptoms (principal); R33.8 Other retention of urine; Z79.899 Other long term (current) drug therapy | CPT/HCPCS: 51700; 81003 ==

== ENCOUNTER 2023-05-24 14:15 | Outpatient (AMB) | payer OTHER, SELFPAY ==
--- NOTE | 2023-05-24 14:30 | A.OFFVIS_ITS ---
Intake Intake Visit Reasons: cysto Intake Note: Patient presents today for a CYSTOSCOPY Procedure: Meds: Tamsulosin Allergies to Antibiotic: No Known Allergies Blood Thinner: None Urinalysis test clear for Cysto? YES Disposable Uro-G Cystoscope Cannula: Lot: [id number] Exp: 08/27/2024 Case Managers Required: No Accompanied by: Significant Other Allergies No Known Allergies Allergy (Verified 05/24/23 14:31) Medication List - Last Reconciled 05/24/23 by Dipika Dobbins MD amlodipine 2.5 mg PO DAILY sulfamethoxazole-trimethoprim 400-80 mg (Bactrim) 1 tab PO DAILY sulfamethoxazole-trimethoprim 800-160 mg (Bactrim DS) 1 tab PO BID tamsulosin (Flomax) 0.4 mg PO BEDTIME HPI HPI Comments History of Present Illness Details 05/24/23--Jc is a 52-year-old male who presents today to the office For office cystoscopy. He was initially evaluated on 01/05/2023 for a voiding trial due to urinary retention. LV--01/05/2023--He presents today for an evaluation of?voiding trial. He was seen in ED on 12/23/2022 for abdominal pain and urinary retention. He was seen in ED on 12/25/2022 for urinary retention. The patient was referred to the urology office during that time.? I reviewed the CT of the abdomen/pelvis results from 12/23/2022 revealed no hydronephrosis or nephrolithiasis.? Prostate is mildly enlarged. 05/24/2023--today the patient states he van s been taking the Flomax since he was last seen he feels that he is emptying well. Office cystoscopy--findings: Cystoscopy findings: prostatic urethra non obstructive, bulbous urethra WNL, erythematous changes papule like involving the entire posterior bladder wall 05/24/2023 plan: Repeat Cysto Bactrim suppressive therapy urine c/s and cytology PFSH Medical History No pertinent past medical history Surgical History No pertinent past surgical history Social History Household Members: Spouse Housing: House Do you presently have visiting nurse or other home services: No Alcohol intake: never Patient Tobacco Use Status: Never used Tobacco Second Hand Smoke Exposure: No service: No Review of Systems Const All systems reviewed & are unremarkable except as noted in HPI and below Reports no additional complaints Eyes Reports no additional complaints ENT Reports no additional complaints Card Denies dyspnea Resp Denies cough and Denies dyspnea GI Reports no additional complaints Musc Reports no additional complaints Skin/Breast Denies rash and Denies unusual bruising Neuro Reports no additional complaints Psych Reports no additional complaints Endo Reports no additional complaints Naif/Lymph Reports no additional complaints Aller/Immun Reports no additional complaints Office Procedures Cystoscopy Consent Discussed risk and benefit or proposed procedure with the patient. Information consent for procedure given to the patient. Discussed technical aspects, risks, benefits and alternatives in full. Addressed all of the patient's questions and concerns regarding the procedure. The patient demonstrated knowledge and understanding. They wish to proceed with this procedure. Preparation The patient was prepped in the usual manner. A international manager was present and in the room. Genitalia was prepped with betadine solution in a sterile manner. Lidocaine Jelly 2% was placed into the urethra and 16Fr flexible Olympus cystoscope was inserted into the meatus after adequate lubrication. Procedure Time out per protocol performed. Bladder Inspection Bladder Inspection: The bladder was inspected in its entirety with utilization retroflexion displaying: Tumor(s): see findings below Trabeculation: N/A Mucosal Erthema: Yes Orifices: normal shape and position Urethra: normal Cystoscopy findings: prostatic urethra non obstructive, bulbous urethra WNL, erythematous changes papule like involving the entire posterior bladder wall [id number] DISPOSABLE SCOPE URO-G FLEXIBLE SCOPE Procedure code (CPT) selection complete Office Meds lidocaine HCl 2 % mucosal jelly in applicator Performing Provider: Dipika Dobbins MD Performing [facility] [place] [facility] Administered by: Shay Echavarria LPN on 05/24/23 14:31 Dose Route Admin Location Dispensed Lot Number Expiration Date NDC Deployment Manager 10 mL intra-urethral 20 mL naproxen 500 mg tablet Performing Provider: Dipika Dobbins MD Performing Location: [facility] [place] [facility] Administered by: Shay Echavarria LPN on 05/24/23 14:31 Dose Route Admin Location Dispensed Lot Number Expiration Date NDC Deployment Manager 500 mg PO 1 tab ciprofloxacin HCl 500 mg tablet Performing Provider: Dipika Dobbins MD Performing Location: [facility] [place] Administered by: Shay Echavarria LPN on 05/24/23 14:31 Dose Route Admin Location Dispensed Lot Number Expiration Date NDC Deployment Manager 500 mg PO 1 tab Results AMB Urinalysis, Automated UA Leukoctes 0 Abdirashid/uL Last Edit by AYAZ Valadez on 05/24/23 14:33 UA Nitrite Negative Last Edit by AYAZ Valadez on 05/24/23 14:33 UA Urobilinogen 0.2 mg/dL Last Edit by AYAZ Valadez on 05/24/23 14:3 3 UA Protein 100 mg/dL Last Edit by AYAZ Valadez on 05/24/23 14:33 2+ Mazin Berry 05/24/23 14:33 UA pH 6.0 Last Edit by AYAZ Valadez on 05/24/23 14:33 UA Blood 25 Braden/uL Last Edit by AYAZ Valadez on 05/24/23 14:33 1+ Mazin eBrry 05/24/23 14:33 UA Specific [place] 1.015 Last Edit by AYAZ Valadez on 05/24/23 14: 33 UA Ketone Negative Last Edit by AYAZ Valadez on 05/24/23 14:33 UA Bilirubin 0 mg/dL Last Edit by AYAZ Valadez on 05/24/23 14:33 UA Glucose 0 mg/dL Last Edit by AYAZ Valadez on 05/24/23 14:33 Results Reviewed Results Reviewed: Laboratory Last Values Urine pH (Auto) 6.0 05/24/23 14:32 Specific [place] (Auto) 1.015 05/24/23 14:32 Urine Protein (Auto) 100 mg/dL 05/24/23 14:32 Glucose (UA)(Auto) 0 mg/dL 05/24/23 14:32 Urine Ketones (Auto) Negative 05/24/23 14:32 Urine Blood (Auto) 25 Braden/uL 05/24/23 14:32 Urine Nitrite (Auto) Negative 05/24/23 14:32 Urine Bilirubin (Auto) 0 mg/dL 05/24/23 14:32 Urine Urobilinogen (Auto) 0.2 mg/dL 05/24/23 14:32 Leukocyte Esterase (Auto) 0 Abdirashid/uL 05/24/23 14:32 Assessment & Plan Assessment & Plan (1) Acute urinary retention: Code(s): R33.8 - Other retention of urine (2) BPH (benign prostatic hyperplasia): Code(s): N40.0 - Benign prostatic hyperplasia without lower urinary tract symptoms (3) Lesion of bladder: Code(s): N32.9 - Bladder disorder, unspecified Plan Repeat Cysto Bactrim suppressive therapy urine c/s and cytology Orders: Orders AMB Cystoscopy 05/24/23 N40.0 - Benign prostatic hyperplasia without lower uri nary tract symptoms, R33.8 - Other retention of urine AMB Urinalysis Automated 05/24/23 Z13.9 - Encounter for screening, unspecified Urine Culture 05/24/23 N39.0 - Urinary tract infection, site not specified Urine Cytology 05/24/23 N40.0 - Benign prostatic hyperplasia without lower urinary tract symptoms, R33.8 - Other retention of urine Medications: New sulfamethoxazole-trimethoprim 800-160 mg (Bactrim DS) 1 tab PO BID 10 tabs 0RF sulfamethoxazole-trimethoprim 400-80 mg (Bactrim) after completing bactrim ds bid for 5 days start Bactrim SS one daily 1 tab PO DAILY 45 tabs 0RF Coding Level of Care Code Est Pt Level 3 (11134) Diagnoses Acute urinary retention R33.8 BPH (benign prostatic hyperplasia) N40.0 Lesion of bladder N32.9 CPT Codes Cystoscopy - CPT: 79161-Qrxayctldx ([id number])
== END 2023-05-24 15:15 | disposition home or self-care (01) ==
PROVIDERS: Visit Provider Urology
DX: R33.8 Other retention of urine (principal); N40.0 Benign prostatic hyperplasia without lower urinary tract symptoms; N32.9 Bladder disorder, unspecified
CPT/HCPCS: 52000; 99213

== ENCOUNTER 2023-05-24 14:15 | Outpatient (REF) | payer OTHER, SELFPAY ==
[2023-05-24 16:34] LABS: Urine Cytology See Pathology rpt
== END 2023-05-24 14:16 | disposition home or self-care (01) ==
LOC: HO.LAB 14:15
PROVIDERS: Visit Provider Urology
DX: N39.0 Urinary tract infection, site not specified (principal); N40.0 Benign prostatic hyperplasia without lower urinary tract symptoms; R33.8 Other retention of urine
CPT/HCPCS: 52000; 81003; 87086; 88112

== ENCOUNTER 2023-06-28 14:10 | Outpatient (AMB) | payer OTHER, SELFPAY ==
--- NOTE | 2023-06-28 14:11 | MHC.OFFVIS ---
Intake Intake Visit Reasons: cysto Intake Note: Patient presents today for a CYSTOSCOPY Procedure: Meds: Flomax Allergies to Antibiotic: No Known Allergies Blood Thinner: None Urinalysis test clear for Cysto? YES Disposable Uro-G Cystoscope Cannula: Lot: [id number] Exp: 02/08/2026 Internal Medicine Physician Required: No Accompanied by: Significant Other Allergies No Known Allergies Allergy (Verified 06/28/23 14:30) HPI HPI Comments History of Present Illness Details 06/28/23--Jc is here for repeat office cystoscopy. He was seen on 05/24/2023 cystoscopy at that time noted multifocal erythematous changes suggestive of cystitis and he was treated with antibiotics. He states he was not able to complete the course of antibiotics. Office cystoscopy:--Findings--there is a decrease in the erythematous changes noted however since there are still abnormalities visualized, and urine cytology came back atypical, I have discussed further evaluation with cystoscopy bladder biopsy. Review of chart: 05/24/23--Jc is a 52-year-old male who presents today to the office For office cystoscopy. He was initially evaluated on 01/05/2023 for a voiding trial due to urinary retention. LV--01/05/2023--He presents today for an evaluation of?voiding trial. He was seen in ED on 12/23/2022 for abdominal pain and urinary retention. He was seen in ED on 12/25/2022 for urinary retention. The patient was referred to the urology office during that time.?I reviewed the CT of the abdomen/pelvis results from 12/23/2022 revealed no hydronephrosis or nephrolithiasis.? Prostate is mildly enlarged. 05/24/2023--today the patient states he has been taking the Flomax since he was last seen he feels that he is emptying well. Office cystoscopy--findings: Cystoscopy findings: prostatic urethra non obstructive, bulbous urethra WNL, erythematous changes papule like involving the entire posterior bladder wall. plan:Repeat Cysto Bactrim suppressive therapy urine c/s and cytology 06/28/23-- outpatient Cystoscopy, bladder biopsy [facility] Medical History No pertinent past medical history Surgical History No pertinent past surgical history Social History Household Members: Spouse Housing: House Do you presently have visiting nurse or other home services: No Alcohol intake: never Patient Tobacco Use Status: Never used Tobacco Second Hand Smoke Exposure: No service: No Review of Systems Const All systems reviewed & are unremarkable except as noted in HPI and below Reports no additional complaints Eyes Reports no additional complaints ENT Reports no additional complaints Card Reports no additional complaints Resp Reports no additional complaints GI Reports no additional complaints Reports as per HPI Musc Reports no additional complaints Skin/Breast Reports system reviewed and no additional complaints, except as documented Neuro Reports no additional complaints Psych Reports no additional complaints Endo Reports no additional complaints Naif/Lymph Reports no additional complaints Aller/Immun Reports no additional complaints Office Procedures Cystoscopy Consent Discussed risk and benefit or proposed procedure with the patient. Information consent for procedure given to the patient. Discussed technical aspects, risks, benefits and alternatives in full. Addressed all of the patient's questions and concerns regarding the procedure. The patient demonstrated knowledge and understanding. They wish to proceed with this procedure. Preparation The patient was prepped in the usual manner. A chief of surgery was present and in the room. Genitalia was prepped with betadine solution in a sterile manner. Lidocaine Jelly 2% was placed into the urethra and 16Fr flexible Olympus cystoscope was inserted into the meatus after adequate lubrication. Time out per protocol performed. Bladder Inspection Bladder Inspection: The bladder was inspected in its entirety with utilization retroflexion displaying: Tumor(s): Multifocal erythematous changes Trabeculation: Not applicable Mucosal Erthema: Present Orifices: normal shape and position Urethra: normal Cystoscopy findings: prostatic urethra non obstructive, bulbous urethra WNL, multifocal erythematous changes [id number] DISPOSABLE SCOPE URO-G FLEXIBLE SCOPE Procedure code (CPT) selection complete Office Meds lidocaine HCl 2 % mucosal jelly in applicator Performing Provider: Dipika Dobbins MD [place] [facility] [place] [facility] Administered by: Laura Mckenzie RN on 06/28/23 14:38 Dose Route Admin Location Dispensed Lot Number Expiration Date [facility] Inspector Balance Bridge 10 mL intra-urethral 20 mL naproxen 500 mg tablet Performing Provider: Dipika Dobbins MD [place] [facility] [place] [facility] Administered by: Laura Mckenzie RN on 06/28/23 14:38 Dose Route Admin Location Dispensed Lot Number Expiration Date NDC Inspector Balance Bridge 500 mg PO 1 tab ciprofloxacin HCl 500 mg tablet Performing Provider: Dipika Dobbins MD [place]forming [place] [facility] [place] [facility] Administered by: Laura Mckenzie RN on 06/28/23 14:38 Dose Route Admin Location Dispensed Lot Number Expiration Date NDC Inspector Balance Bridge 500 mg PO 1 tab Results AMB Urinalysis, Automated UA Leukoctes 0 Abdirashid/uL Last Edit by AYAZ Valadez on 06/28/23 14:41 UA Nitrite Negative Last Edit by AYAZ Valadez on 06/28/23 14:41 UA Urobilinogen 3.5 mg/dL Last Edit by AYAZ Valadez on 06/28/23 14:41 UA Protein 0.3 mg/dL Last Edit by AYAZ Valadez on 06/28/23 14:41 UA pH 6.0 Last Edit by AYAZ Valadez on 06/28/23 14:41 UA Blood 10 Braden/uL Last Edit by AYAZ Valadez on 06/28/23 14:41 UA Specific [place] 1.015 Last Edit by AYAZ Valadez on 06/28/23 14:41 UA Ketone Negative Last Edit by AYAZ Valadez on 06/28/23 14:41 UA Bilirubin 0 mg/dL Last Edit by AYAZ Valadez on 06/28/23 14:41 UA Glucose 0 mg/dL Last Edit by AYAZ Valadez on 06/28/23 14:41 Results Reviewed Results Reviewed: Laboratory Last Values Urine pH (Auto) 6.0 06/28/23 14:31 Specific [place] (Auto) 1.015 06/28/23 14:31 Urine Protein (Auto) 0.3 mg/dL 06/28/23 14:31 Glucose (UA)(Auto) 0 mg/dL 06/28/23 14:31 Urine Ketones (Auto) Negative 06/28/23 14:31 Urine Blood (Auto) 10 Braden/uL 06/28/23 14:31 Urine Nitrite (Auto) Negative 06/28/23 14:31 Urine Bilirubin (Auto) 0 mg/dL 06/28/23 14:31 Urine Urobilinogen (Auto) 3.5 mg/dL 06/28/23 14:31 Leukocyte Esterase (Auto) 0 Abdirashid/uL 06/28/23 14:31 Collected: 05/24/23 Location: .LAB Received: 05/25/23 Diagnosis Urine: Atypical urothelial cells. COMMENT: Examination of a monolayer preparation slide shows benign urothelial cells with reactive changes, benign squamous cells, and occasional atypical urothelial cells with increased nuclear:cytoplasmic ratios. There are scattered red blood cells and acute inflammatory cells also present. Assessment & Plan Assessment & Plan (1) BPH (benign prostatic hyperplasia): Code(s): N40.0 - Benign prostatic hyperplasia without lower urinary tract symptoms (2) Lesion of bladder: Code(s): N32.9 - Bladder disorder, unspecified (3) Abnormal urine cytology: Code(s): R82.89 - Other abnormal findings on cytological and histological examination of urine Plan Outpatient cystoscopy bladder biopsy Orders: Orders AMB Cystoscopy 06/28/23 N40.0 - Benign prostatic hyperplasia without lower urinary tract symptoms, R33.8 - Other retention of urine, N32.9 - Bladder disorder, unspecified AMB Urinalysis Automated 06/28/23 Z13.9 - Encounter for screening, unspecified Patient Instructions: The patient had an opportunity to ask questions regarding treatment plan. All questions were answered. Imaging, Laboratory studies and physical exam results were discussed and reviewed in detail. No major barriers to understanding were identified. The patient expressed understanding and agreement with the above treatment plan. The patient is aware they should contact our office by phone for worsening of their current condition or the appearance of new symptoms. Compliance is encouraged with any medications and followup testing that is ordered. It is a privilege to be allowed the opportunity to participate in the urologic care of your patient. If you have any questions or concerns regarding treatment for the above conditions please do not hesitate to contact me. The office telephone contact is [phone]. This note is constructed in part using voice recognition software. While every effort has been made to ensure accuracy hay buckler errors may have been included. Yours sincerely, Dipika Dobbins MD Coding Level of Care Code Est Pt Level 4 (60618) Diagnoses BPH (benign prostatic hyperplasia) N40.0 Lesion of bladder N32.9 Abnormal urine cytology R82.89 CPT Codes Cystoscopy - CPT: [id number] ([id number])
== END 2023-06-28 15:31 | disposition home or self-care (01) ==
PROVIDERS: Visit Provider Urology
DX: N40.0 Benign prostatic hyperplasia without lower urinary tract symptoms (principal); R33.8 Other retention of urine; N32.9 Bladder disorder, unspecified; Z13.9 Encounter for screening, unspecified
CPT/HCPCS: 52000; 99214

== ENCOUNTER → 2023-06-28 14:10 | Outpatient (BNVA) | payer OTHER, SELFPAY | PROVIDERS: Visit Provider Urology | DX: N40.1 Benign prostatic hyperplasia with lower urinary tract symptoms (principal); R33.8 Other retention of urine; N32.9 Bladder disorder, unspecified; R82.89 Other abnormal findings on cytological and histological examination of urine | CPT/HCPCS: 52000; 81003 ==

== ENCOUNTER 2023-07-31 08:01 | Day surgery (SDC) | payer OTHER, SELFPAY ==
[2023-07-31] VITALS (7 sets, daily range): BP systolic 107–157; BP diastolic 68–94; PULSE 53–67; RESP 14–18; TEMP 36.4–36.8; O2SAT 95–100; BMI 28.2
[2023-07-31] MEDS: Lactated Ringers 1,000 ML 50 ML IVCONT (08:28)
--- NOTE | 2023-07-31 08:55 | P.CONAN_ITS ---
[facility] [place] Active Problems Active Problems: All Active Problems Abnormal urine cytology (Acute) Lesion of bladder (Acute) BPH (benign prostatic hyperplasia) (Acute) Acute urinary retention (Acute) Past Medical History Medical History (Updated 07/31/23 @ 08:18 by Etelvina Cordova RN) HTN (hypertension) No pertinent past medical history Family History Family history of problems with anesthesia: No Surgical History Surgical History No pertinent past surgical history History of Problems with Anesthesia: No Social History Social History Household Members: Spouse Housing: House Do you presently have visiting nurse or other home services: No Alcohol intake: never Patient Tobacco Use Status: Never used Tobacco Second Hand Smoke Exposure: No Are you DNR?: No Advance Directives: No Advance Directives Information Provided: Yes Recently lost weight without trying: No Nutrition Risks: No Nutritional Risk service: No Meds Allergies Allergy/AdvReac Type Severity Reaction Status Date / Time No Known Allergies Allergy Verified 06/28/23 14:30 Active Medications: Current Medications Fentanyl (Fentanyl Citrate/Pf 100 Mcg/2 Ml Vial) 25 mcg IVPUSH Q5M PRN; Protocol PRN Reason: Pain, Moderate(Pain Scale 4-6) Stop: 07/31/23 14:53 Lactated Ringer's (Lr) 1,000 mls @ 50 mls/hr IVCONT .Q20H ORESTES Last Admin: 07/31/23 08:28 Dose: 50 mls/hr Ondansetron HCl (Ondansetron Hcl 4 Mg/2 Ml Vial) 4 mg IVPUSH ONCE PRN PRN Reason: Nausea and Vomiting Stop: 07/31/23 14:53 Home Medications ?Medication ?Instructions ?Recorded ?Confirmed ?Last Taken ?Type atenolol 50 mg tablet 50 mg PO DAILY 07/31/23 07/31/23 07/30/23 History lisinopril 5 mg tablet 5 mg PO DAILY 07/31/23 07/31/23 07/30/23 History Exam Height,Weight and Vital Signs: Height 5 ft 7 in Weight 81.737 kg Last Vital Signs Temp 97.6 F 07/31/23 08:07 Pulse 56 07/31/23 08:07 Resp 18 07/31/23 08:07 BP 157/94 H 07/31/23 08:07 Pulse Ox 99 07/31/23 08:07 O2 Del Method Room Air 07/31/23 08:07 Airway Mallampati Class: III TM Dist: >3cm Neck ROM: Full Loose/Missing/Broken Teeth: No Heart: rrr Lungs: clear Assessment and Plan Final Anesthetic Review Family History of Problems with Anesthesia: No History of Problems with Anesthesia: No NPO: Yes ASA Class: II Patient Risk: Intermediate Procedure Risk: Low Anesthetic Plan Anesthetic Plan: GA Disposition: Standard PACU
--- NOTE | 2023-07-31 11:01 | MHC.SHP ---
Pre-Procedural Eval Section A - 24 Hr Update-Section A only Date of Service: 07/31/23 The patient is an INPATIENT: No The patient has been examined within 24 hours of the surgical procedure. The History & Physical has been completed within 30 days and I have reviewed it.: Yes Section B - Complete if H&P > 30 days Chief Complaint: Bladder disorder, unspecified Allergies: Allergies Allergy/AdvReac Type Severity Reaction Status Date / Time No Known Allergies Allergy Verified 06/28/23 14:30 Plan Diagnosis/Plan: Unchanged I have reviewed the history and physical and performed a pertinent physical examination on my patient. No changes have occurred unless specified. Cystoscopy bladder biopsies. Discussed risks to include but not limited to, blood in the urine, burning with urination, urgency. Time Spent With Patient Time: Total time managing care of this patient today ____ minutes.
--- NOTE | 2023-07-31 12:14 | W.PM.OPN ---
Operative Note Operative Note Date of Service: 07/31/23 Narrative: PREOP DIAGNOSIS: Bladder lesion, atypical cytology POSTOP DIAGNOSIS: Bladder lesion, atypical cytology PROCEDURE: CYSTOSCOPY, Urethral Dilation fossae navicularis, bladder biopsies SURGEON: Dipika Dobbins MD ANESTHESIA: General Indications: Office cystoscopy noted multifocal erythematous changes suggestive of cystitis, the patient was treated with antibiotics. repeat office cystoscopy noted a decrease in the erythematous changes noted however since there are still abnormalities visualized, and urine cytology came back atypical, the patient is being brought in for further evaluation with bladder biopsies. Details of procedure: The patient was brought into the operating room placed on the OR table in supine position. 2 g of Ancef IV. General anesthesia was administered. The patient was repositioned into lithotomy position, prepped and draped in the usual sterile fashion. Time-out was done per protocol. Attempts to place the 22 Brazilian cystoscope noted resistance at the meatus. The [place] sounds was used to dilate the meatus from a 16 Brazilian sequentially up to a 24 Brazilian. A 22 fr cystoscope was placed transurethrally into the bladder. The right and left ureteral orifices were visualized. The entire bladder was visualized. Erythematous flattened bladder lesions noted on the posterior bladder wall and left lateral wall. Using the flexible biopsy forceps biopsies were taken from the posterior wall and left lateral wall. The Bugbee electrode available became contaminated and not able to be used. Another Bugbee was not available. Due to meatal narrowing of the fossa navicularis, the decision to further dilate the meatus to accommodate the larger botswanan resectoscope and roller ball attachment for hemostasis was not done. Further visualization of the biopsied areas with the cystoscope noted that there were no active bleeding. Decision was made to terminate the procedure at this point. The cystoscope was removed. 2% lidocaine urojet was passed transurethrally into the bladder. The patient was brought out of anesthesia and taken to recovery in stable condition. Complications: None Drains: None
[2023-07-31] MEDS: Phenazopyridine HCL 200 MG TABLET PO (12:40)
== END 2023-07-31 13:36 | disposition home or self-care (01) ==
PROVIDERS: Visit Provider Urology
PROC: (CPT 52204; principal; 2023-07-31 13:20)
DX: N32.9 Bladder disorder, unspecified (principal); N30.21 Other chronic cystitis with hematuria; N99.115 Postprocedural fossa navicularis urethral stricture; I10 Essential (primary) hypertension; Z79.899 Other long term (current) drug therapy
CPT/HCPCS: 52204; 52275; 88305; C1758; J0690; J1100; J2250; J2405; J2704; J3010

== ENCOUNTER → 2023-07-31 08:01 | Outpatient (BNV) | payer OTHER, SELFPAY | PROVIDERS: Visit Provider Urology | DX: N32.9 Bladder disorder, unspecified (principal) | CPT/HCPCS: 52204 ==

== ENCOUNTER 2023-08-30 08:25 | Outpatient (AMB) | payer OTHER, SELFPAY ==
--- NOTE | 2023-08-30 08:31 | A.OFFVIS_ITS ---
Intake Visit Reasons: Bladder biopsy results Intake Note: Patient presents today for a Bladder Biopsy: Meds: Tamsulosin Allergies to Antibiotic: No Known Allergies Blood Thinner: None Neurophysiological Technician Required: No Accompanied by: Significant Other Allergies No Known Allergies Allergy (Verified 06/28/23 14:30) HPI Comments Details: 08/30/2023--Jc is being followed for BPH and microscopic hematuria, office cystoscopy noted erythematous changes. He is status post outpatient cystoscopy and bladder biopsy. I have reviewed results with the patient. Bladder biopsy results-lymphoid aggregates, chronic cystitis. Discussed to continue tamsulosin daily. PSA screening. Review of chart: 06/28/23--Jc is here for repeat office cystoscopy. He was seen on 05/24/2023 cystoscopy at that time noted multifocal erythematous changes suggestive of cystitis and he was treated with antibiotics. He states he was not able to complete the course of antibiotics. Office cystoscopy:--Findings--there is a decrease in the erythematous changes noted however since there are still abnormalities visualized, and urine cytology came back atypical, I have discussed further evaluation with cystoscopy bladder biopsy. 05/24/23--Jc is a 52-year-old male who presents today to the office For office cystoscopy. He was initially evaluated on 01/05/2023 for a voiding trial due to urinary retention. LV--01/05/2023--He presents today for an evaluation of?voiding trial. He was seen in ED on 12/23/2022 for abdominal pain and urinary retention. He was seen in ED on 12/25/2022 for urinary retention. The patient was referred to the urology office during that time.?I reviewed the CT of the abdomen/pelvis results from 12/23/2022 revealed no hydronephrosis or nephrolithiasis.? Prostate is mildly enlarged. 05/24/2023--today the patient states he has been taking the Flomax since he was last seen he feels that he is emptying well. Office cystoscopy--findings: Cystoscopy findings: prostatic urethra non obstructive, bulbous urethra WNL, erythematous changes papule like involving the entire posterior bladder wall. plan:Repeat Cysto Bactrim suppressive therapy urine c/s and cytology PFSH Medical History HTN (hypertension) No pertinent past medical history Surgical History Hx of biopsy Hx of cystoscopy Social History Household Members: Spouse Housing: House Do you presently have visiting nurse or other home services: No Alcohol intake: never Patient Tobacco Use Status: Never used Tobacco Second Hand Smoke Exposure: No service: No Review of Systems Const All systems reviewed & are unremarkable except as noted in HPI and below Reports no additional complaints Eyes Reports no additional complaints ENT Reports no additional complaints Card Reports no additional complaints Resp Reports no additional complaints GI Reports no additional complaints Reports as per HPI Musc Reports no additional complaints Skin/Breast Reports system reviewed and no additional complaints, except as documented Neuro Reports no additional complaints Psych Reports no additional complaints Endo Reports no additional complaints Naif/Lymph Reports no additional complaints Aller/Immun Reports no additional complaints Results Reviewed Results Reviewed: Collected: 07/31/23 Location: [facility] Received: 07/31/23 Diagnosis A. Bladder, posterior wall, biopsy: Chronic cystitis with prominent lymphoid aggregates; negative for malignancy. B. Bladder, left lateral wall, biopsy: Chronic cystitis with prominent lymphoid aggregates; negative for malignancy. Clinical History Microscopic hematuria / bladder lesions Microscopic Description A, B. Microscopic sections reviewed. Material Received A. Posterior wall bladder bx B. Left lateral wall bladder bx Collected: 05/24/23 [facility] Received: 05/25/23 Diagnosis Urine: Atypical urothelial cells. COMMENT: Examination of a monolayer preparation slide shows benign urothelial cells with reactive changes, benign squamous cells, and occasional atypical urothelial cells with increased nuclear:cytoplasmic ratios. There are scattered red blood cells and acute inflammatory cells also present. Assessment & Plan Assessment & Plan (1) BPH (benign prostatic hyperplasia): Code(s): N40.0 - Benign prostatic hyperplasia without lower urinary tract symptoms Category: Medical (2) Cystitis: Code(s): N30.90 - Cystitis, unspecified without hematuria Category: Medical (3) Screening PSA (prostate specific antigen): Code(s): Z12.5 - Encounter for screening for malignant neoplasm of prostate Category: Medical Plan Continue tamsulosin. Bladder biopsy chronic cystitis. Will monitor for irritative voiding symptoms. PSA screening. Orders: Orders PSA,Total (Free>4and<10) 8 Months N40.0 - Benign prostatic hyperplasia without lower urinary tract symptoms, Z12.5 - Encounter for screening for malignant neoplasm of prostate Patient Instructions: The patient had an opportunity to ask questions regarding treatment plan. The patient expressed understanding and agreement with the above treatment plan. The patient is aware they should contact our office by phone for worsening of their current condition or the appearance of new symptoms. Compliance is encouraged with any medications and followup testing that is ordered. It is a privilege to be allowed the opportunity to participate in the urologic care of your patient. If you have any questions or concerns regarding treatment for the above conditions please do not hesitate to contact me. The office telephone contact is [phone]. This note is constructed in part using voice recognition software. While every effort has been made to ensure accuracy cement breaker errors may have been included. Yours sincerely, Dipika Dobbins MD Coding Level of Care Code Est Pt Level 3 (83187) Diagnoses BPH (benign prostatic hyperplasia) N40.0 Cystitis N30.90 Screening PSA (prostate specific antigen) Z12.5
== END 2023-08-30 09:01 | disposition home or self-care (01) ==
PROVIDERS: Visit Provider Urology
DX: N40.0 Benign prostatic hyperplasia without lower urinary tract symptoms (principal); N30.90 Cystitis, unspecified without hematuria; Z12.5 Encounter for screening for malignant neoplasm of prostate
CPT/HCPCS: 99213

== ENCOUNTER → 2023-08-30 08:25 | Outpatient (BNVA) | payer OTHER, SELFPAY | PROVIDERS: Visit Provider Urology ==

== ENCOUNTER 2024-05-26 11:29 | Outpatient (REF) | payer OTHER, SELFPAY ==
--- OUTSIDE RECORDS SUMMARY | 2024-05-26 12:45 | XMS_ITS | Encounter Summary ---
Author Organization [facility] Address [address] [place] [address] Care Team Providers Care Freight Handler Name Role Phone Tj Enciso MD Primary Care Provider Encounter Details Date Type Department Care Team (Late st Contact Info) Description 05/01/2024 Telephone Adult Medicine [facility] [address] [place] [phone] Tj Enciso MD [address] [place] [address] Social History Tobacco Use Types Packs/Day Years Used Date Smoking Tobacco: Never Smokeless Tobacco: Never Alcohol Use Standard Drinks/Week Comments Not Asked 0 (1 standard drink = 0.6 oz pur e alcohol) Housing Instability Answer Date Recorde d Are you worried that in the next 2 months you may not have stable housing? No 04/30/2024 Food Access & Nutrition Answer Date Rec orded Do you have access to a vari ety of food including fruits and vegetables? Yes 04/30/2024 Access to Healthcare Answer Date Record ed Within the last 3 months, ho w many times did you visit the emergency department for your medical care? 0 04/30/2024 Health Literacy Answer Date Recorded How often do you need to hav e someone help you when you read instructions, pamphlets, or other written material from your doctor or pharmacy? Rarely 04/30/2024 Caregiver: How often do you need to have someone help you when you read instructions, pamphlets, or other written material from your doctor or pharmacy? Not on file 04/30/2024 Financial Risk Answer Date Recorded How hard is it for you to pa y for the very basics like food, housing, medical care, and air conditioning / heating? Not very hard 04/30/2024 Transportation Answer Date Recorded Has the lack of transportati on kept you from meetings, work, or from getting things needed for daily living? No Has the lack of transportati on kept you from medical appointments or from getting medications? No 04/30/2024 Social Isolation Answer Date Recorded How often do you feel lonely or isolated from those around you? Sometimes 04/30/2024 Food Risk Answer Date Recorded Within the past 12 months we worried whether our food would run out before we got money to buy more. Patient declined 025 Within the past 12 months th e food we bought just didn't last and we didn't have money to get more. Patient declined 04/16 Dependent Care Answer Date Recorded Do you need help finding or paying for care for your loved ones. For example, child support case officer or elderly care for an older adult? No 04/30/2024 Education Answer Date Recorded Do you think completing more education or training, like finishing a GED, going to college, or learning a trade, would be helpful for you? N/A 04/30/2024 Employment and Income Answer Date Recor ded During the last four weeks, have you been actively looking for work? No 04/30/2024 Living Situation Answer Date Recorded What is your living situation? 0 04/30/2024 Sex and Gender Information Value Date Recorded Sex Assigned at Not on file Legal Sex Male 8:49 PM EST Gender Identity Not on file Sexual Orientation Not on file documented as of this encounter Progress Notes * Kassandra Barroso MA - 05/02/2024 10:31 AM EST Notes left in provider's in basket. * Tj Enciso MD - 05/01/2024 2:11 PM EST Can we obtain this patient's urology consult notes from [place] documented in this encounter Plan of Treatment Upcoming Encounters Date Type Department Care Team (Late st Contact Info) Description 09/01/2024 1:15 PM EDT Office Visit Adult Medicine East - [place] [address] [place], [place] [phone] Tj Enciso MD [address] [place], [place] 09/09/2024 2:00 PM EDT Appointment [facility] Endoscopy [address] [place] [phone] Rubio Colindres MD 175 [facility] 200 [place] [address] 09/11/2024 2:30 PM EDT Office Visit Nephrology [address] [phone] Florencio Olea MD 3550 [facility] 204 [place] [address] documented as of this encounter Visit Diagnoses Not on filedocumented in this encounter Additional Health Concerns Assessment Noted Time PHQ-9 Depression Total Score: 0 04/24/19 25 2:11 PM EST documented as of this encounter Care Teams Freight Handler Relationship Specialty Start Date End Date Tj Enciso MD [address] [place] [address] PCP - General 08/11/22 documented as of this encounter
--- OUTSIDE RECORDS SUMMARY | 2024-05-26 12:45 | XMS_ITS | Clinical Summary ---
Author Organization [address] Address [address] [place] [phone] Phone Care Team Providers Care Door Core Assembler Name Role Phone Tj Enciso MD Primary Care Provider Allergies No known active allergies Medications amLODIPine (NORVASC) 5 mg tablet TAKE 1 TABLET BY MOUTH EVERY DAY 90 tablet 1 4 Active lisinopriL (PRINIVIL,ZEST RIL) 5 mg tablet Take 1 tablet (5 mg total) by mouth 1 (one) time each day. 90 each 1 5 Active tamsulosin (FLOMAX) 0.4 mg 24 hr capsule Take 1 capsule (0.4 mg total) by mouth 1 (one) time each day. 90 each 1 5 Active polyethylene glycol (Golytely) 236-22.74-6.74 -5.86 gram solution Take 4L by mouth once for one dose. May substitue any PEG. Starting at 6PM the night before your procedure drink 1 8oz glasses at your own pace until you complete half of the gallon. Finish 2nd half of the gallon 5 hours before your procedure. 4000 mL 5 Active bisacodyL (DULCOLAX) 5 mg EC tablet Take 2 tablets by mouth right before beginning bowel prep. See instructions provided by the office 2 tablet 5 Active lisinopriL (PRINIVIL,ZEST RIL) 5 mg tablet Take 1 tablet (5 mg total) by mouth 1 (one) time each day. 4 025 Discontin ued(Reord er) tamsulosin (FLOMAX) 0.4 mg 24 hr capsule Take 1 capsule (0.4 mg total) by mouth. 025 Discontin ued(Reord er) Active Problems Problem Noted Date Diagnosed Date Stage 3b chronic kidney disease 06/13/2023 Pure hypercholesterolemia 06/13/2023 Elevated PSA 06/13/2023 Primary hypertension 05/16/2023 Benign prostatic hyperplasia 05/16/2023 Encounters Date Type Department Care Team Description 05/19/2024 Telephone Gastroenterology - [place] [address] [facility] [address] [place] [address] Segundo Olivares DO Special Procedure 05/01/2024 1:15 PM EST Office Visit Adult Medicine [address] [phone] Tj Enciso MD Primary hypertension (Primary Dx); Stage 3b chronic kidney disease (CMS/HCC); Benign prostatic hyperplasia without lower urinary tract symptoms; Pure hypercholesterolemia 05/01/2024 Telephone Adult Medicine [address] [phone] Tj Enciso MD 03/27/2024 3:00 PM EST Consult Nephrology - [address] [phone] Florencio Olea MD Stage 3 chronic kidney disease, unspecified whether stage 3a or 3b CKD (CMS/HCC) (Primary Dx); Primary hypertension from Last 3 Months Surgical History Surgery Date Site/Laterality Comments OTHER SURGICAL HISTORY PROCEDURE: DENIES PREVIOUS SURGERY Medical History Medical History Date Comments HTN (hypertension) DX:HTN (hyper tension) BPH (benign prostatic hyperplasia) DX:BPH (benign prostatic hyperplasia) Social History Tobacco Use Types Packs/Day Years Used Date Smoking Tobacco: Never Smokeless Tobacco: Never Tobacco Cessation:Counseling Given: Not Answered Alcohol Use Standard Drinks/Week Comments Not Asked [...] care for your loved ones. For example, childbirth and infant care teacher or elderly care for an older adult? [...] on file Sexual Orientation Not on file Obstetrics History Last Filed Vital Signs Vital Sign Reading Time Taken Comments Blood Pressure 147/86 05/01/2024 1:22 PM EST Pulse 68 05/01/2024 1:22 PM EST Temperature 37.2 ??C (98.9 ??F) 05/01/2024 1:22 PM ES T Respiratory Rate 13 05/01/2024 1:22 PM EST Oxygen Saturation - - Inhaled Oxygen Concentration - - Weight 82.5 kg (181 lb 12.8 oz) 05/01/2024 1:22 PM EST Height 170.2 cm (5' 7 ) 05/01/2024 1:22 PM EST Body Mass Index 28.47 05/01/2024 1:22 PM EST Plan of Treatment Upcoming Encounters Date Type Department Care Team (Late st Contact Info) Description 09/01/2024 1:15 PM EDT Office Visit Adult Medicine East [address] [phone] Tj Enciso MD [address] [place], [place] 09/09/2024 2:00 PM EDT Appointment [facility] Endoscopy [address] [place] [phone] Rubio Colindres MD 175 [facility] 200 [place] [address] 09/11/2024 2:30 PM EDT Office Visit Nephrology [address] [phone] Florencio Olea MD 3550 [facility] 204 [place] [phone] Health Maintenance Due Date Last Done Comments COVID-19 Vaccine (#1) 1974 DTaP,Tdap,and Td Vaccines (1 - Tdap) 1976 Hepatitis B Vaccines (1 of 3 - 19+ 3-dose series) 1988 Pneumococcal Vaccine: 50+ Years (1 of 1 - PCV) 08/21/2019 Zoster Vaccines (1 of 2) 08/21/2019 Colorectal Cancer Screening: Colonoscopy 05/11/2023 HIV Screening 05/11/2023 Hepatitis C Screening 05/11/2023 Influenza Vaccine (#1) 2024 Postp oned from 12/16/2023 (Patient Refused) Hypertension/CHF/CAD Annual BMP Blood Test 12/31/2024 01/01/2024, 09/19/2023, 08/09/2023 Depression Screening 04/24/2025 04/24/2024 Social Influencers of Health Screening 04/30/2025 04/30/2024 Cholesterol Screening (Lipid Panel) 12/31/2028 01/01/2024 HIB Vaccines Aged Out No longer eligi ble based on patient's age to complete this topic HPV Vaccines Aged Out No longer eligi ble based on patient's age to complete this topic Hepatitis A Vaccines Aged Out No long er eligible based on patient's age to complete this topic IPV Vaccines Aged Out No longer eligi ble based on patient's age to complete this topic MMR Vaccines Aged Out No longer eligi ble based on patient's age to complete this topic Meningococcal ACWY Vaccine Aged Out N o longer eligible based on patient's age to complete this topic Meningococcal B Vacine Aged Out No lo nger eligible based on patient's age to complete this topic Pneumococcal Vaccine: Pediatrics (0 to 5 Years) and At-Risk Patients (6 to 64 Years) Aged Out No longer eligible b ased on patient's age to complete this topic RSV Immunization Patients Under 20 months Aged Out No longer eligible b ased on patient's age to complete this topic Varicella Vaccines Aged Out No longer eligible based on patient's age to complete this topic [place] [address] [place] [address] Care Teams Door Core Assembler Relationship Specialty Start Date End Date Tj Enciso MD [address] [place] [address] PCP - General 08/11/22
--- OUTSIDE RECORDS SUMMARY | 2024-05-26 12:45 | XMS_ITS | Encounter Summary ---
Author Organization [facility] Address [address] [place] [address] Care Team Providers Care Car Cooper Name Role Phone Tj Enciso MD Primary Care Provider Reason for Visit * Reason Comments Follow-up 4 month f/u Encounter Details Date Type Department Care Team (Late st Contact Info) Description 05/01/2024 1:15 PM EST Office Visit Adult Medicine [facility] [address] [place], [place] [phone] Tj Enciso MD [address] [place] [address] Primary hypertension (Primary Dx); Stage 3b chronic kidney disease (CMS/HCC); Benign prostatic hyperplasia without lower urinary tract symptoms; Pure hypercholesterolemia Social History Tobacco Use Types Packs/Day Years [...] care for your loved ones. For example, rn child or elderly care for an older adult? [...] on file documented as of this encounter Last Filed Vital Signs Vital Sign Reading [...] Mass Index 28.47 05/01/2024 1:22 PM EST documented in this encounter Ordered Prescriptions Prescription Sig Dispense Quantity Refills Last Filled Start Date End Date tamsulosin (FLOMAX) 0.4 mg 24 hr capsule Take 1 capsule (0.4 mg total) by mouth 1 (one) time each day. 90 each 1 05/01/2024 lisinopriL (PRINIVIL,ZESTRIL) 5 mg tablet Take 1 tablet (5 mg total) by mouth 1 (one) time each day. 90 each 1 05/01/2024 documented in this encounter Progress Notes * Tj Enciso MD - 05/01/2024 1:15 PM EST SUBJECTIVE: Jc Martinez is a 53 y.o. male who presents today for Chief Complaint Patient presents with Follow-up 4 month f/u HPI: 53-year-old male presenting for routine follow-up. No active complaints. Follows urology at [place]. Current Meds: Current Outpatient Medications: amLODIPine (NORVASC) 5 mg tablet, TAKE 1 TABLET BY MOUTH EVERY DAY, Disp: 90 tablet, Rfl: 1 lisinopriL (PRINIVIL,ZESTRIL) 5 mg tablet, Take 1 tablet (5 mg total) by mouth 1 (one) time each day., Disp: 90 each, Rfl: 1 tamsulosin (FLOMAX) 0.4 mg 24 hr capsule, Take 1 capsule (0.4 mg total) by mouth 1 (one) time each day., Disp: 90 each, Rfl: 1 Allergies: No Known Allergies Immunizations: There is no immunization history on file for this patient. Active Problems: Patient Active Problem List Diagnosis Primary hypertension Stage 3b chronic kidney disease (CMS/HCC) Pure hypercholesterolemia Elevated PSA Benign prostatic hyperplasia HISTORY: Past Medical History: Diagnosis Date BPH (benign prostatic hyperplasia) DX:BPH (benign prostatic hyperplasia) HTN (hypertension) DX:HTN (hypertension) Past Surgical History: Procedure Laterality Date OTHER SURGICAL HISTORY PROCEDURE: DENIES PREVIOUS SURGERY No family history on file. Social History Socioeconomic History Marital status: Single Spouse name: Not on file Number of children: Not on file Years of education: Not on file Highest education level: Not on file Occupational History Not on file Tobacco Use Smoking status: Never Smokeless tobacco: Never Substance and Sexual Activity Alcohol use: Not on file Drug use: Never Sexual activity: Not on file Comment: single - 1 kid Other Topics Concern Not on file Social History Narrative Not on file ROS: GENERAL: Negative for malaise, significant weight loss and fever RESPIRATORY: No cough, wheezing or shortness of breath CARDIOVASCULAR: Negative for chest pain, leg swelling and palpitations GI: Negative for abdominal discomfort, changes in bowel habits, blood in stool or black stools VITAL SIGNS Vitals: 05/01/24 1322 BP: (!) 147/86 Pulse: 68 Resp: 13 Temp: 37.2 ??C (98.9 ??F) TempSrc: Temporal Weight: 82.5 kg (181 lb 12.8 oz) Height: 1.702 m (67 ) Body mass index is 28.47 kg/m??. Body surface area is 1.94 meters squared. PHYSICAL EXAM: Blood pressure (!) 147/86, pulse 68, temperature 37.2 ??C (98.9 ??F), temperature source Temporal, resp. rate 13, height 1.702 m (67 ), weight 82.5 kg (181 lb 12.8 oz). Body mass index is 28.47 kg/m??. Plan is deferred until next visit APPEARANCE: Alert and in no acute distress HEART: RRR with normal S1 and S2, no murmurs, no gallops, no JVD appreciated CHEST: non-tender LUNG: clear to auscultation bilaterally ABDOMEN: Bowel sounds normoactive, no bruits and soft, non-tender, without organomegaly or palpablemasses ASSESSMENT/PLAN: Jc was seen today for follow-up. Diagnoses and all orders for this visit: Primary hypertension (Primary) Stage 3b chronic kidney disease (CMS/HCC) Benign prostatic hyperplasia without lower urinary tract symptoms Pure hypercholesterolemia - Lipid panel with reflex to direct LDL; Future Other orders - lisinopriL (PRINIVIL,ZESTRIL) 5 mg tablet; Take 1 tablet (5 mg total) by mouth 1 (one) time each day. - tamsulosin (FLOMAX) 0.4 mg 24 hr capsule; Take 1 capsule (0.4 mg total) by mouth 1 (one) time each day. Plan Blood pressure slightly elevated today, will continue lisinopril amlodipine at the current dosage for now. Recheck cholesterol with the next of labs. Follow back in 3 months. If blood pressure still elevated at next visit, will increase the dose of his medications. Patient has stage IIIb CKD. Following with nephrology. I have applied the code G2211 to this patient???s visit as the primary care provider dealing with (above mentioned conditions) leading to the extensive work up, and management associated with the medical care of this patient. This patient???s serious conditions and complex medical conditions also required several consultants needing management and coordination through my office. I have reviewed all information as it pertains to the management of this patient for final approval. Follow up in about 3 months (around 07/30/2024) for Next scheduled follow-up. Orders Placed This Encounter Procedures Lipid panel with reflex to direct LDL Tj Enciso MD documented in this encounter Plan of Treatment Upcoming Encounters Date Type Department Care Team (Late st Contact Info) Description 09/01/2024 1:15 PM EDT Office Visit Adult Medicine East - [address] [phone] Tj Enciso MD [address] [place], [place] 09/09/2024 2:00 PM EDT Appointment [facility] Endoscopy [address] [place] [phone] Rubio Colindres MD 175 [facility] 200 [place], [place] [id number] 09/11/2024 2:30 PM EDT Office Visit Nephrology [address] [phone] Florencio Olea MD 3550 [facility] [address] [place] [address] Scheduled Orders Name Type Priority Associated Diagnoses Orde r Schedule Lipid panel with reflex to direct LDL Lab Routine Pure hypercholesterolemia 1 Occurrences starting 05/01/2024 until 05/01/2025 documented as of this encounter Visit Diagnoses Diagnosis Primary hypertension- Primary Unspecified essential hypertension Stage 3b chronic kidney disease (CMS/HCC) Benign prostatic hyperplasia without lower urinary tract symptoms Pure hypercholesterolemia documented in this encounter Discontinued Medications Medication Sig Discontinue Reason Start Date End Da te lisinopriL (PRINIVIL,ZESTRIL) 5 mg tablet Take 1 tablet (5 mg total) by mouth 1 (one) time each day. Reorder 11/21/2023 05/01/2024 tamsulosin (FLOMAX) 0.4 mg 24 hr capsule Take 1 capsule (0.4 mg total) by mouth. Reorder 05/16/2023 05/01/2024 documented as of this encounter Additional Health Concerns Assessment Noted Time PHQ-9 Depression Total Score: 0 04/24/19 25 2:11 PM EST documented as of this encounter Care Teams Car Cooper Relationship Specialty Start Date End Date Tj Enciso MD [address] [place] [address] PCP - General 08/11/22 documented as of this encounter
--- OUTSIDE RECORDS SUMMARY | 2024-05-26 12:45 | XMS_ITS | Encounter Summary ---
Author Organization [facility] Address [address] [place] [address] Care Team Providers Care Pediatric Genetic Counselor Name Role Phone Tj Enciso MD Primary Care Provider Reason for Visit * Reason Onset Date Comments Special Procedure 05/19/2024 Encounter Details Date Type Department Care Team (Late st Contact Info) Description 05/19/2024 Telephone Gastroenterology - [place] [address] [place] [phone] Segundo Olivares DO [address] [place] [address] [place] [address] Special Procedure Social History Tobacco Use Types Packs/Day Years [...] for your loved ones. For example, child care associate or elderly care for an older adult? [...] as of this encounter Progress Notes * Shannon Iverson MA - 05/19/2024 11:36 AM EST Scheduled. * Shannon Lemus - 05/19/2024 8:49 AM EST Patient calling to reschedule colonoscopy for today 05/19 due to not following prep instructions documented in this encounter Plan of Treatment Upcoming Encounters Date Type Department Care Team (Late st Contact Info) Description 09/01/2024 1:15 PM EDT Office Visit Adult Medicine East - [place] [address] [place], [place] [phone] Tj Enciso MD [address] [place], [place] 09/09/2024 2:00 PM EDT Appointment [facility] Endoscopy [address] [place] [phone] Rubio Colindres MD 175 [facility] 200 [place] [address] 09/11/2024 2:30 PM EDT Office Visit Nephrology - [address] [phone] Florencio Olea MD 3550 [facility] 204 [place] [address] documented as of this encounter Visit Diagnoses Not on filedocumented in this encounter Additional Health Concerns Assessment Noted Time PHQ-9 Depression Total Score: 0 04/24/19 25 2:11 PM EST documented as of this encounter Care Teams Pediatric Genetic Counselor Relationship Specialty Start Date End Date Tj Enciso MD [address] [place] [address] PCP - General 08/11/22 documented as of this encounter
[2024-05-26 13:22] LABS: PSA,Total (Free>4and<10) 2.69 ng/mL (0.00-4.00)
== END 2024-05-26 11:30 | disposition home or self-care (01) ==
LOC: HO.10HDL 11:29
PROVIDERS: Visit Provider Urology
DX: N40.0 Benign prostatic hyperplasia without lower urinary tract symptoms (principal); Z12.5 Encounter for screening for malignant neoplasm of prostate
CPT/HCPCS: 36415; 84153

== ENCOUNTER 2024-06-20 15:47 | Outpatient (AMB) | payer OTHER, SELFPAY ==
--- NOTE | 2024-06-20 15:49 | A.OFFVIS_ITS ---
Intake Visit Reasons: 9m/PSA Intake Note: Patient presents today for a 9 month/PSA Meds: Tamsulosin Antibiotic Allergies: None Blood Thinner: None PVR: 86ml PSA: 2.69 05/26/24 Speech Pathologist Required: No Accompanied by: Significant Other Allergies No Known Allergies Allergy (Verified 06/20/24 15:50) Medication List - Last Reconciled 06/20/24 by Dipika Dobbins MD amlodipine 2.5 mg PO DAILY atenolol 50 mg PO DAILY lisinopril 5 mg PO DAILY phenazopyridine (Pyridium) 200 mg PO Q8H tamsulosin 0.4 mg PO BEDTIME HPI Comments Details: 06/20/24-- History of Present Illness The patient is a 53-year-old male presenting with ongoing management concerns for Benign Prostatic Hyperplasia (BPH). 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 He reports that his urinary flow and frequency have been stable under this medication, and his PSA level was recently recorded as 2.69 ng/mL. Medication adherence and timing have been topics of discussion, as they play a significant role in managing his symptoms effectively. He does not report any current infections or additional complications. A follow-up visit is scheduled for nine months, with instructions to perform another PSA test prior to that visit. Urinary Symptoms Review - Consistent nocturnal medication use (tamsulosin) at 10 PM. - Persistent urinary schedule aligning with nerve specialist work. - Steady urinary flow reported, with manageable frequency. - PSA at 2.69 ng/mL, considered within normal range. - Stable urinary symptoms under current pharmaceutical management; no recent infections noted. Review of Systems - Genitourinary: Reports stable urination. Denies recent infections or complications. - General: Denies any other changes in health or symptoms outside of urological focus. Const All systems reviewed & are unremarkable except as noted in HPI and below Reports no additional complaints Eyes Reports no additional complaints ENT Reports no additional complaints Card Reports no additional complaints Resp Reports no additional complaints GI Reports no additional complaints Reports as per HPI Musc Reports no additional complaints Skin/Breast Reports system reviewed and no additional complaints, except as documented Neuro Reports no additional complaints Psych Reports no additional complaints Endo Reports no additional complaints Naif/Lymph Reports no additional complaints Aller/Immun Reports no additional complaints Physical Exam General: Healthy appearing, no acute distress and well developed Orientation and consciousness: Patient oriented x3 Head: Yes normocephalic and Yes atraumatic Eyes: Conjunctivae normal Neck: Yes normal visual inspection Chest: Normal inspection of the chest Respiratory: Normal respiratory effort GI: Normal to inspection : Extremities: Skin: Neurology: Patient oriented x3 Psych: Appearance grossly normal. Normal affect Results - Labs: Prostate-Specific Antigen (PSA) at 2.69 ng/mL, within normal limits (normal is typically less than 4 ng/mL). Plan Continue with current treatment regimen of nocturnal tamsulosin, considering adherence to prescribed intervals for optimal efficacy relative to the patient's schedule. Review was conducted concerning the normal PSA levels, and the patient was instructed for a repeat PSA test before the next follow-up. The current treatment is effective without recent complications, and prescriptions were updated to ensure medication continuity. Patient was informed and verbally consented to the use of an ambient scribe for clinic note documentation during this visit. Discussion Notes During today's visit, I discussed with the patient his current regimen of tamsulosin for managing Benign Prostatic Hyperplasia. We covered the rationale for consistent medication timing and the importance of aligning it with his sleep and work schedules for maximum effect. The patient understands the normality of his PSA level and the necessity of routine monitoring. We have planned a follow-up in nine months, with instructions for retesting the PSA beforehand. I provided assurance regarding the stability of his current treatment. Prescription renewals have been arranged to avoid disruption in therapy, and the patient is aware to contact the office should his symptoms change or become troublesome. Patient Instructions - Continue taking tamsulosin as currently scheduled every night. - Follow consistent timing for medication to maintain efficacy. - Schedule another PSA test before your next follow-up. - Contact our office if you notice any changes in urinary symptoms. - Ensure medication supplies are continuous until your next appointment. 08/30/2023--Jc is being followed for BPH and microscopic hematuria, office cystoscopy noted erythematous changes. He is status post outpatient cystoscopy and bladder biopsy. I have reviewed results with the patient. Bladder biopsy results-lymphoid aggregates, chronic cystitis. Discussed to continue tamsulosin daily. PSA screening. 06/28/23--Jc is here for repeat office cystoscopy. He was seen on 05/24/2023 cystoscopy at that time noted multifocal erythematous changes suggestive of cystitis and he was treated with antibiotics. He states he was not able to complete the course of antibiotics. Office cystoscopy:--Findings--there is a decrease in the erythematous changes noted however since there are still abnormalities visualized, and urine cytology came back atypical, I have discussed further evaluation with cystoscopy bladder biopsy. 05/24/23--Jc is a 52-year-old male who presents today to the office For office cystoscopy. He was initially evaluated on 01/05/2023 for a voiding trial due to urinary retention. LV--01/05/2023--He presents today for an evaluation of?voiding trial. He was seen in ED on 12/23/2022 for abdominal pain and urinary retention. He was seen in ED on 12/25/2022 for urinary retention. The patient was referred to the urology office during that time.?I reviewed the CT of the abdomen/pelvis results from 12/23/2022 revealed no hydronephrosis or nephrolithiasis.? Prostate is mildly enlarged. 05/24/2023--today the patient states he has been taking the Flomax since he was last seen he feels that he is emptying well. Office cystoscopy--findings: Cystoscopy findings: prostatic urethra non obstructive, bulbous urethra WNL, erythematous changes papule like involving the entire posterior bladder wall. plan:Repeat Cysto Bactrim suppressive therapy urine c/s and cytology PFSH Medical History HTN (hypertension) No pertinent past medical history Surgical History Hx of biopsy Hx of cystoscopy Social History Household Members: Spouse Housing: House Do you presently have visiting nurse or other home services: No Alcohol intake: never Patient Tobacco Use Status: Never used Tobacco Second Hand Smoke Exposure: No service: No Office Procedures Post Void Residual Post Residual Void Post Void Residual (PVR): 86 [id number] Void Residual by ultrasound Results AMB Urinalysis, Automated UA Leukoctes 0 Abdirashid/uL Last Edit by Pat Mckenzie on 06/20/24 16:32 UA Nitrite Negative Last Edit by Pat Mckenzie on 06/20/24 16:32 UA Urobilinogen 3.5 mg/dL Last Edit by Pat Mckenzie on 06/20/24 16:32 UA Protein 0.3 mg/dL Last Edit by Pat Mckenzie on 06/20/24 16:32 UA pH 6.5 Last Edit by Pat Mckenzie on 06/20/24 16:32 UA Blood 0 Braden/uL Last Edit by Pat Mckenzie on 06/20/24 16:32 UA Specific [place] 1.010 Last Edit by Pat Mckenzie on 06/20/24 16:32 UA Ketone Negative Last Edit by Pat Mckenzie on 06/20/24 16:32 UA Bilirubin 0 mg/dL Last Edit by Pat Mckenzie on 06/20/24 16:32 UA Glucose 0 mg/dL Last Edit by Pat Mckenzie on 06/20/24 16:32 Assessment & Plan Assessment & Plan Orders: Orders AMB Urinalysis Automated Today Z13.9 - Encounter for screening, unspecified Medications: Refilled tamsulosin 0.4 mg PO BEDTIME 90 caps 3RF Coding CPT Codes Post Residual Void - PVR CPT Code: 55791-[id number] Void Residual by ultrasound ([id number])
--- OUTSIDE RECORDS SUMMARY | 2024-06-20 17:16 | XMS_ITS | Clinical Summary ---
Author Organization [address] Address [address] [place] [phone] Phone Care Team Providers Care Movable Bulkhead Installer Name Role Phone Tj Enciso MD Primary Care Provider Allergies No known active allergies Medications amLODIPine (NORVASC) 5 mg tablet TAKE 1 TABLET BY MOUTH EVERY DAY 90 tablet 1 4 Active lisinopriL (PRINIVIL,ZESTR IL) 5 mg tablet Take 1 tablet (5 [...] by the office 2 tablet 5 Active Active Problems Problem Noted Date Diagnosed Date Stage 3b chronic kidney disease 06/13/2023 Pure hypercholesterolemia 06/13/2023 Elevated PSA 06/13/2023 Primary hypertension 05/16/2023 Benign prostatic hyperplasia 05/16/2023 Encounters Date Type Department Care Team Description 05/19/2024 Telephone Gastroenterology - [place] [address] [place] [address] Segundo Olivares DO Special Procedure 05/01/2024 1:15 PM EST Office Visit Adult Medicine [address] [phone] Tj Enciso MD Primary hypertension (Primary Dx); Stage 3b chronic kidney disease (CMS/HCC); Benign prostatic hyperplasia without lower urinary tract symptoms; Pure hypercholesterolemia 05/01/2024 Telephone Adult Medicine [address] [phone] Tj Enciso MD 03/27/2024 3:00 PM EST Consult Nephrology - [address] [phone] Florencio Olea MD Stage 3 chronic kidney [...] Record ed Within the last 3 months, eric bonilla many times did you visit the emergency [...] care for your loved ones. For example, children's zoo caretaker or elderly care for an older adult? [...] EDT Office Visit [facility] [place] [address] [place], [place] [phone] Tj Enciso MD [address] [place], [place] 09/09/2024 2:00 PM EDT Appointment [facility] [address] [place] [phone] Rubio Colindres MD [address] [facility] [address] [place] [address] 09/11/2024 2:30 PM EDT Office Visit Nephrology [place] [id number] [place], [place] [phone] Florencio Olea MD [address] [facility] [address] [place] [phone] Health Maintenance Due Date Last Done Comments COVID-19 Vaccine (#1) 1974 DTaP,Tdap,and Td Vaccines (1 - Tdap) 1988 Hepatitis B Vaccines (1 of 3 - [...] patient's age to complete this topic Insurance [employer] Care Teams Movable Bulkhead Installer Relationship Specialty Start Date End Date Tj Enciso MD [address] [place] [address] PCP - General 4/28/23
== END 2024-06-20 16:30 | disposition home or self-care (01) ==
PROVIDERS: Visit Provider Urology
DX: Z13.9 Encounter for screening, unspecified (principal)

== ENCOUNTER → 2024-06-20 15:47 | Outpatient (BNVA) | payer OTHER, SELFPAY | PROVIDERS: Visit Provider Urology | DX: N40.0 Benign prostatic hyperplasia without lower urinary tract symptoms (principal); N30.90 Cystitis, unspecified without hematuria | CPT/HCPCS: 51798; 81003 ==

== ENCOUNTER 2025-03-23 15:42 | Outpatient (AMB) | payer OTHER, SELFPAY ==
--- NOTE | 2025-03-23 16:02 | A.OFFVIS_ITS ---
Intake Visit Reasons: 9m/PSA Intake Note: Patient presents today for a 9m with PSA Urology Meds: Tamsulosin Antibiotic Allergies: None Blood Thinner: None PVR:202ml Boiler Washer Required: No Accompanied by: Significant Other Allergies No Known Allergies Allergy (Verified 03/23/25 16:03) HPI Comments Details: Jc is a 54-year-old male who has been followed for BPH he is here for follow- up Bladder scan PVR was 202 mL the patient was asked to void in a urinal and he is able to void 190 mL urinalysis was checked which is within normal limits PFSH Medical History HTN (hypertension) No pertinent past medical history Surgical History Hx of biopsy Hx of cystoscopy Social History Household Members: Spouse Housing: House Do you presently have visiting nurse or other home services: No Alcohol intake: never Patient Tobacco Use Status: Never used Tobacco Second Hand Smoke Exposure: No service: No Results AMB Urinalysis, Automated UA Leukoctes 0 Abdirashid/uL Last Edit by Pat Mckenzie on 03/23/25 16:59 UA Nitrite Negative Last Edit by Pat Mckenzie on 03/23/25 16:59 UA Urobilinogen 0.2 mg/dL Last Edit by Pat Mckenzie on 03/23/25 16:59 UA Protein 30 mg/dL Last Edit by Pat Mckenzie on 03/23/25 16:59 UA pH 6.0 Last Edit by Pat Mckenzie on 03/23/25 16:59 UA Blood 10 Braden/uL Last Edit by Pat Mckenzie on 03/23/25 16:59 UA Specific [place] 1.010 Last Edit by Pat Mckenzie on 03/23/25 16:59 UA Ketone Negative Last Edit by Pat Mckenzie on 03/23/25 16:59 UA Bilirubin 0 mg/dL Last Edit by Pat Mckenzie on 03/23/25 16:59 UA Glucose 0 mg/dL Last Edit by Pat Mckenzie on 03/23/25 16:59 Assessment & Plan Assessment & Plan (1) Elevated PSA: Code(s): R97.20 - Elevated prostate specific antigen [PSA] Category: Medical Orders: Orders AMB Urinalysis Automated Today Z13.9 - Encounter for screening, unspecified PSA,Total (Free>4and<10) 9 Months R97.20 - Elevated prostate specific antigen [PSA] Medications: Refilled tamsulosin 0.4 mg PO BEDTIME 90 caps 3RF Coding Diagnoses Elevated PSA R97.20
== END 2025-03-23 16:14 | disposition home or self-care (01) ==
LOC: HO.HUSH 15:42
PROVIDERS: Visit Provider Urology
DX: Z13.9 Encounter for screening, unspecified (principal)